=== PATIENT | female | born 1930 | race Caucasian/White ===

== ENCOUNTER 2016-04-28 16:42 | Inpatient (IN) | payer MEDICARE, BC ==
[~2016-04-28] VITALS: Ht 152.4 cm; Wt 43.7 kg
[~2016-04-28 16:42] MED LIST: ACET325T40 PO; APIX5TAB PO; ATOR20TA38 PO; B CO1CAP PO; CALC1TAB92 PO; FAMO-95 PO; HYDR-3498 PO; LEVO75TA59 PO; MAGN400T27 PO; METO50TA16 PO; MULT1TAB59 PO; MURO1282 BOTH EYES; OMEG-135 PO
[2016-04-28] MEDS ORDERED: ASPIRIN 81 MG TAB PO STA (18:26)
[2016-04-28] MEDS ORDERED: ACETAMINOPHEN 325 MG TAB PO PRN (18:30)
[2016-04-28] MEDS ORDERED: ONDANSETRON 4 MG INJ IV PRN (18:30)
[2016-04-28 18:58] LABS: CHLORIDE 100 mmol/L (97-110); INR 1.13; PROTIME 14.5 Sec (12.2-14.2); PT RATIO 1.1
[2016-04-28 18:59] LABS: BASOPHILS % 0.5 % (0.0-2.0); EOSINOPHILS # 0.1 10^3/ul (0.0-0.5); EOSINOPHILS % 1.9 % (0.0-7.0); HEMATOCRIT 38.5 % (37.0-47.0); HEMOGLOBIN 12.9 g/dl (12.0-16.0); LYMPHOCYTES # 1.6 10^3/ul (0.8-2.9); LYMPHOCYTES % 28.6 % (15.0-51.0); MEAN CORPUSCULAR HEMOGLOBIN 33.5 pg (29.0-33.0); MEAN CORPUSCULAR HGB CONC 33.5 g/dl (32.0-37.0); MONOCYTE # 0.8 10^3/ul (0.3-0.9); MONOCYTES % 13.9 % (0.0-11.0); NEUTROPHIL # 3.1 10^3/ul (1.6-7.5); NEUTROPHILS % 55.1 % (39.0-77.0); PARTIAL THROMBOPLASTIN TIME 32.1 Sec (25.0-35.0); PLATELET COUNT 210 10^3/UL (140-440); POTASSIUM 4.3 mmol/L (3.5-5.1); RED BLOOD COUNT 3.85 10^6/ul (4.20-5.40); RED CELL DISTRIBUTION WIDTH 13.9 % (11.5-14.5); SODIUM 137 mmol/L (135-144); UNCORRECTED WBC 5.6 10^3/ul (4.8-10.8); WHITE BLOOD COUNT 5.6 10^3/ul (4.8-10.8)
[2016-04-28 19:00] LABS: CONDITION 1
[2016-04-28 19:01] LABS: CREATININE 0.58 mg/dl (0.44-1.00)
[2016-04-28 19:02] LABS: ANION GAP 12 (8-16); BLOOD UREA NITROGEN 21 mg/dl (7-20); CALCIUM 9.3 mg/dl (8.4-10.2); CARBON DIOXIDE 29 mmol/L (21-31); GLUCOSE 89 mg/dl (70-220)
--- NOTE | 2016-04-28 19:08 | RADRPT ---
PROCEDURE: CT brain without contrast CLINICAL INDICATION: Possible stroke TECHNIQUE: A CT of the brain was performed utilizing axial sections from the skull base through th e vertex without contrast. Sagittal and coronal images were also reformatted. The exam CTDIvol = 44. 73 mGy and DLP = 630.20 mGy-cm. COMPARISON: Most recent relevant examination is an MRI brain 11/14/2014 FINDINGS: Areas of low attenuation consistent with encephalomalacia involve the left middle and superior front al lobe gyri, sequela of infarcts seen on the previous MRI of the brain. There is no evidence of he morrhage, acute infarct, mass effect, mass lesion or extra-axial collection. The ventricular system and sulci are slightly prominent compatible the patient's provided age of 86 years and associated r elated atrophy. The fourth ventricle is midline and there is no density alteration within the brian or cerebellum. The osseous structures are unremarkable. Chronic appearing opacification of the right ethmoid air c ells is present. The remaining paranasal sinuses and mastoid air cells are clear RPTAT:HJJR IMPRESSION: 1. 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 2. No evidence of acute infarct, hemorrhage or mass effect. 3. Chronic-appearing right ethmoid sinusitis. Physician Nadege Date Time Electronically viewed and signed by Physician Nadege on 04/28/2016 19:08 /
--- NOTE | 2016-04-28 19:16 | RADRPT ---
PROCEDURE: XR Chest. CLINICAL INDICATION: Stroke TECHNIQUE: Single AP portable chest COMPARISON: 11/13/2014 FINDINGS: The cardiomediastinal silhouette is within normal limits of size . Hyperexpansion compatible COPD ri ght posterior healed rib fracture deformities. Marked levoscoliosis of the thoracic spine . Athero sclerotic calcification of the aortic arch. Bilateral pleural calcifications. <The lungs are clear without pleural effusion or focal consolidation. No pneumothorax. The osseous structures and soft t issues are unremarkable. IMPRESSION: 1. No evidence for active cardiopulmonary disease. COPD. RPTAT:AAJJ Physician Mary Date Time Electronically viewed and signed by Physician Mary on 04/28/2016 19:15 YARED/
[2016-04-28 19:25] LABS: TROPONIN-I < 0.012 ng/ml (0.00-0.12)
--- NOTE | 2016-04-28 19:47 | ERA ---
ER Documentation Chief Complaint Date/Time DATE: 04/28/16 TIME: 19:47 Chief Complaint slurred speech, unsteady gait, onset at 1600. r eye blurry vision. HPI Patient is a 86-year-old female with previous stroke who presents with stroke symptoms. She said that she started with this at 4 PM. She started with "expressive aphasia" and inability to walk. The symptoms lasted 30 minutes and have resolved now. The family was concerned for possible stroke as she has had stroke in the past. The patient's primary doctor is Dr. Zelaya. He did call me to tell me the patient was in the emergency department waiting room with a potential stroke. ROS All systems reviewed and are negative except as per history of present illness. Medications Home Meds Active Scripts Metoprolol Succinate* (Toprol XL*) 50 Mg Tabsr, 50 MG PO DAILY, #30 Prov:FREDY GO NP 11/16/14 Magnesium Oxide* (Mag-Oxide*) 400 Mg Tab, 400 MG PO DAILY for 30 Days Prov:FREDY GO NP 11/16/14 Hydrocodone Bit/Acetaminophen (Anexsia 5-325 Mg Tablet) 1 Tab Tab, 1 TAB PO Q6H Y for MODERATE PAIN LEVEL 4-6 for 10 Days Prov:FREDY GO NP 11/16/14 Fish Oil* (Fish Oil*) 1,000 Mg Cap, 1000 MG PO BID for 30 Days, CAP Prov:FREDY GO NP 11/16/14 Famotidine* (Pepcid* AC) 20 Mg Tab, 20 MG PO BID for 30 Days Prov:FREDY GO NP 11/16/14 Calcium Carbonate/Vitamin D3 (Oyster Shell 500 Mg + Vit D Tb) 1 Tab Tab, 1 TAB PO BID for 30 Days Prov:FREDY GO NP 11/16/14 Atorvastatin Calcium* (Atorvastatin Calcium*) 20 Mg Tab, 80 MG PO HS for 30 Days Prov:FREDY GO NP 11/16/14 Apixaban* (Eliquis*) 5 Mg Tablet, 2.5 MG PO BID for 30 Days Prov:FREDY GO NP 11/16/14 Acetaminophen (MAPAP) 325 Mg Tab, 650 MG PO Q6H Y for PAIN LEVEL 1-3 OR FEVER for 30 Days Prov:FREDY GO NP 8/24/15 Reported Medications Sodium Chloride* (Nikita-128*) 2%-15ml Dropper Opht, 1 DROP BOTH EYES, EA 02/27/14 Vitamin B Comp W-C (Vitamin B-Complex W/Vit C & E) 1 Cap Capsule, 1 CAP PO DAILY 12/29/10 Multivitamins* (Multivitamins*) 1 Tab Tablet, 1 TAB PO DAILY 12/29/10 Levothyroxine Sodium (Levothroid) 75 Mcg Tablet, 75 MCG PO DAILY 12/29/10 Allergies Allergies: Coded Allergies: ceftriaxone (Verified Allergy, Mild, BURNING SENSATION OF ENTIRE BODY, ) cephalexin (Verified Allergy, Mild, GI UPSET, 11/16/14) ciprofloxacin (Verified Allergy, Mild, REDNESS AND ITCHING OF SKIN, ) nitroglycerin (Verified Allergy, Mild, HIVES, 11/16/14) PMhx/Soc History of Surgery: No Anesthesia Reaction: No Hx Neurological Disorder: Yes (S/P STROKE,TIA w/ rt side residual) Hx Respiratory Disorders: No Hx Cardiac Disorders: Yes (HTN, A-FIB) Hx Psychiatric Problems: No Hx Miscellaneous Medical Probl: Yes (hypothyroidism, reports having cataracts, macular degeneration) Hx Alcohol Use: No Hx Substance Use: No Hx Tobacco Use: Yes Smoking Status: Former smoker FmHx Family History: No diabetes Physical Exam Vitals Vital Signs Date Time Temp Pulse Resp B/P Pulse Ox O2 Delivery O2 Flow Rate FiO2 04/28/16 19:51 67 16 144/109 99 Room Air 04/28/16 16:57 98.8 64 20 147/65 98 Physical Exam Const: No acute distress Head: Atraumatic Eyes: Normal Conjunctiva ENT: Normal External Ears, Nose and Mouth. Neck: Full range of motion..~ No meningismus. Resp: Clear to auscultation bilaterally Cardio: Regular rate and rhythm, no murmurs Abd: Soft, non tender, non distended. Normal bowel sounds Skin: No petechiae or rashes Back: No midline or flank tenderness Ext: No cyanosis, or edema Neur: Awake and alert, right-sided upper extremity weakness from previous stroke but no obvious new deficit, speech is normal Psych: Normal Mood and Affect Result Diagram: 04/28/16183904/28/161839 Results 24 hrs Laboratory Tests Test 04/28/16 18:40 Activated Partial Thromboplast Time 32.1Sec Anion Gap 12 Basophils # 0.010^3/ul Basophils % 0.5% Blood Urea Nitrogen 21mg/dl Calcium Level 9.3mg/dl Carbon Dioxide Level 29mmol/L Chloride Level 100mmol/L Creatinine 0.58mg/dl Eosinophils # 0.110^3/ul Eosinophils % 1.9% Glucose Level 89mg/dl Hematocrit 38.5% Hemoglobin 12.9g/dl Hemoglobin A1c 5.5% INR International Normalized Ratio 1.13 Lymphocytes # 1.610^3/ul Lymphocytes % 28.6% Mean Corpuscular Hemoglobin 33.5pg Mean Corpuscular Hemoglobin Concent 33.5g/dl Mean Corpuscular Volume 100.0fl Mean Platelet Volume 8.0fl Monocytes # 0.810^3/ul Monocytes % 13.9% Neutrophils # 3.110^3/ul Neutrophils % 55.1% Nucleated Red Blood Cells # 0.010^3/ul Nucleated Red Blood Cells % 0.0/100WBC Platelet Count 74568^3/UL Potassium Level 4.3mmol/L Prothrombin Time 14.5Sec Prothrombin Time Ratio 1.1 Red Blood Count 3.8510^6/ul Red Cell Distribution Width 13.9% Sodium Level 137mmol/L Troponin I < 0.012ng/ml White Blood Count 5.610^3/ul Current Medications Medications (Trade) Dose Ordered Sig/Luli Route PRN Reason Start Time Stop Time Status Last Admin Dose Admin Aspirin (Aspirin) 162 mg ONCE STAT PO 04/28/16 18:26 04/28/16 18:27 DC 04/28/16 19:49 Ondansetron HCl (Zofran Inj) 4 mg ER BRIDGE PRN IV NAUSEA AND/OR VOMITING 04/28/16 18:30 04/29/16 18:29 Acetaminophen (Tylenol Tab) 650 mg ER BRIDGE PRN PO MILD PAIN/FEVER 04/28/16 18:30 04/29/16 18:29 Procedures/MDM EKG read by me: Rate/Rhythm: Left bundle branch block a rate of 51 Intervals: Normal Impression: Left bundle branch block with negative Sgarbossa criteria Chest x-ray shows COPD per radiology. PROCEDURE: CT brain without contrast CLINICAL INDICATION: Possible stroke TECHNIQUE: A CT of the brain was performed utilizing axial sections from the skull base through the vertex without contrast. Sagittal and coronal images were also reformatted. The exam CTDIvol = 44.73 mGy and DLP = 630.20 mGy-cm. COMPARISON: Most recent relevant examination is an MRI brain 11/14/2014 FINDINGS: Areas of low attenuation consistent with encephalomalacia involve the left middle and superior frontal lobe gyri, sequela of infarcts seen on the previous MRI of the brain. There is no evidence of hemorrhage, acute infarct, mass effect, mass lesion or extra-axial collection. The ventricular system and sulci are slightly prominent compatible the patient's provided age of 86 years and associated related atrophy. The fourth ventricle is midline and there is no density alteration within the brian or cerebellum. The osseous structures are unremarkable. Chronic appearing opacification of the right ethmoid air cells is present. The remaining paranasal sinuses and mastoid air cells are clear RPTAT:HJJR IMPRESSION: 1. 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 2. No evidence of acute infarct, hemorrhage or mass effect. 3. Chronic-appearing right ethmoid sinusitis. Physician Nadege Date Time Electronically viewed and signed by Fausto Rodriguez Physician on 04/28/2016 19:08 Patient is an 86-year-old female who presents with what sounds like a TIA. She also has a history of migraine headaches and this could be complex migraine. Her symptoms have resolved at this point I doubt acute stroke however she is at high risk for having a stroke within the next 48 hours. The patient had a bedside swallow evaluation and NIH stroke scale done. She is not a candidate for TPA as her symptoms have completely resolved. The patient will be given aspirin. The patient will be admitted to a telemetry bed to the care of Dr. Zelaya who is her primary doctor. Departure Diagnosis: Primary Impression: TIA (transient ischemic attack) Qualified Code: G45.9 - Transient cerebral ischemia, unspecified type Additional Impression: Altered level of consciousness Condition: KARLOS Cobb MD Apr 28, 2016 19:47
[2016-04-28] MEDS ORDERED: ATOR20TA38 PO (20:26)
[2016-04-28] MEDS ORDERED: LEVO75TA5 PO (20:26)
[2016-04-28] MEDS ORDERED: METO25TA4 PO (20:26)
[2016-04-28] MEDS ORDERED: APIX2.5T PO (20:27)
[2016-04-28 22:55] LABS: ADD UMIC YES; URINE BILIRUBIN (Dip) NEGATIVE (NEGATIVE); URINE BLOOD (Dip) NEGATIVE (NEGATIVE); URINE COLOR LT. YELLOW (YELLOW); URINE GLUCOSE (Dip) NEGATIVE (NEGATIVE); URINE KETONES (Dip) NEGATIVE (NEGATIVE); URINE LEUKOCYTE ESTERASE (Dip) TRACE (NEGATIVE); URINE NITRITE (Dip) NEGATIVE (NEGATIVE); URINE TOTAL PROTEIN (Dip) NEGATIVE (NEGATIVE); URINE UROBILINOGEN (Dip) 0.2 E.U./dL (0.1-1.0)
[2016-04-28 23:17] LABS: SQUAMOUS EPITHELIAL CELL,UR RARE; URINE RBCS 0-2 /HPF (0)
[2016-04-28 23:22] LABS: BARBITURATES Negative (NEGATIVE); BENZODIAZEPINES Negative (NEGATIVE); CANNABINOIDS Negative (NEGATIVE); COCAINE Negative (NEGATIVE); OPIATES Negative (NEGATIVE)
[2016-04-29] VITALS (15 sets, daily range): BP systolic 103–134; BP diastolic 45–69; PULSE 55–173; RESP 16–18; TEMP 98; Ht 152.4 cm; Wt 43.7 kg
[2016-04-29] MEDS ORDERED: ACETAMINOPHEN 500 MG TAB PO PRN (03:00)
[2016-04-29] MEDS ORDERED: ZOLPIDEM 5 MG TAB PO PRN (03:00)
[2016-04-29] MEDS: LEVOTHYROXINE 75 MCG TAB PO SCH (06:14)
[2016-04-29 07:42] LABS: ALBUMIN 3.2 g/dl (3.3-4.9); POTASSIUM 4.3 mmol/L (3.5-5.1)
[2016-04-29 07:45] LABS: ALBUMIN/GLOBULIN RATIO 1.14; BILIRUBIN,INDIRECT 0.4 mg/dl (0-1.1); BILIRUBIN,TOTAL 0.4 mg/dl (0.2-1.3); CREATININE 0.58 mg/dl (0.44-1.00)
[2016-04-29 07:46] LABS: CALCIUM 8.8 mg/dl (8.4-10.2)
[2016-04-29] MEDS ORDERED: DILTIAZEM 25 MG INJ IV ONE (08:30)
[2016-04-29 08:56] LABS: RED BLOOD COUNT 3.37 10^6/ul (4.20-5.40); WHITE BLOOD COUNT 3.8 10^3/ul (4.8-10.8)
[2016-04-29 08:57] LABS: HEMATOCRIT 33.7 % (37.0-47.0); HEMOGLOBIN 11.6 g/dl (12.0-16.0); MEAN CORPUSCULAR HEMOGLOBIN 34.4 pg (29.0-33.0); MEAN CORPUSCULAR HGB CONC 34.4 g/dl (32.0-37.0); MEAN PLATELET VOLUME 10.6 fl (7.4-10.4); PLATELET COUNT 187 10^3/UL (140-440); RED CELL DISTRIBUTION WIDTH 13.3 % (11.5-14.5)
[2016-04-29] MEDS: METOPROLOL 25 MG TAB PO SCH ×2 (09:01→20:18)
[2016-04-29] MEDS: APIXABAN 5 MG TABLET PO SCH ×2 (09:02→20:18)
[2016-04-29 09:04] LABS: BASOPHILS % 0.3 % (0.0-2.0); EOSINOPHILS # 0.1 10^3/ul (0.0-0.5); EOSINOPHILS % 3.4 % (0.0-7.0); LYMPHOCYTES # 1.5 10^3/ul (0.8-2.9); LYMPHOCYTES % 40.1 % (15.0-51.0); MONOCYTE # 0.6 10^3/ul (0.3-0.9); MONOCYTES % 15.7 % (0.0-11.0); NEUTROPHIL # 1.5 10^3/ul (1.6-7.5); NEUTROPHILS % 40.2 % (39.0-77.0)
[2016-04-29 09:15] LABS: MAGNESIUM 2.2 mg/dl (1.7-2.5)
[2016-04-29 09:41] LABS: TROPONIN-I < 0.012 ng/ml (0.00-0.12)
--- NOTE | 2016-04-29 13:07 | RADRPT ---
PROCEDURE: Carotid ultrasound CLINICAL INDICATION: Transient ischemic attack, carotid bruits TECHNIQUE: Bhakta scale, color doppler, spectral doppler ultrasound of the bilateral carotid and liban tebral arteries. This study indirectly references the measurement of the distal ICA diameter as the denominator for s tenosis measurement. Validated velocity measurements with angiographic measurements, velocity criter ia are extrapolated from diameter data as defined by: *Cartoid artery stenosis: bhakta-scale and Doppl er US diagnosis. Society of Radiologists in Ultrasound Consensus Conference. Radiology 2003; 229: 34 0-346. SRU Consensus Conference Criteria for the Diagnosis of Carotid Artery Stenosis* Degree of Stenosis, % ICA PSV, cm/sec Plaque Estimate, % ICA/CCA PSV Ratio Normal <125 None <2.0 <50 <125 <50 <2.0 50 69 125-230 >50 2.0-4.0 >70 but less than near occlusion >230 >50 <4.0 Near occlusion High, low, or undetectable Visible Variable Total occlusion Undetectable Visible, no detectable lumen Not applicable COMPARISON: 11/14/2014 FINDINGS: Location Right CCA69 cm/sec Prox ICA 106 cm/sec Mid ICA69 cm/sec Dist ICA63 cm/sec ECA76 cm/sec ICA/CCA1.5 Left CCA91 cm/sec Prox ICA 73 cm/sec Mid ICA63 cm/sec Dist ICA22 cm/sec ECA5.0 cm/sec ICA/CCA0.8 Plaque burden: Prominent calcified plaques are present at the origin of both internal carotid arteri es however there is no evidence of flow acceleration to suggest a hemodynamically significant stenos is. Antegrade flow is seen within the vertebral arteries bilaterally. IMPRESSION: Prominent calcified plaques are present at the origin of both internal carotid arteries however ther e is no evidence of flow acceleration to suggest a hemodynamically significant stenosis. Findings ar e similar to the previous examination. RPTAT: AADD .Anirudh Hanks MD, Date Time Electronically viewed and signed by .Anirudh Hanks MD, on 04/29/2016 13:07 .B/
--- NOTE | 2016-04-29 16:40 | CONS ---
Date/Time of Note Date/Time of Note DATE: 04/29/16 TIME: 16:34 Assessment/Plan Assessment/Plan Additional Assessment/Plan # Aphasia: ? TIA # PAFib- on AC # LBBB # HL >> Continue on Eliquis >> check carotid US and echo >> continue on Metoprolol >> consider amiodarone if recurrent episodes >> question addition of ASA if truly TIA Consultation Date/Type/Reason Admit Date/Time Apr 28, 2016 at 18:27 Type of Consultation: Cardiology Reason for Consultation Afib Hx of Present Illness This is a pleasant 86 yo woman with PAF who presented with aphasia and found to be rapid Afib . She has been on Eliquis and states has been taking it regularly. She has not had any recent episodes of Afib. She is not reporting any CHF syx prior or today. She has no CP or SOB. She had a CT yday without acute ischemia. Constitutional: improved, no complaints Eyes: no complaints ENT: no complaints Respiratory: no complaints Cardiovascular: palpitations Gastrointestinal: diarrhea, no complaints Genitourinary: no complaints Musculoskeletal: no complaints Skin: no complaints Neurologic: confusion, focal-weakness Endocrine: no complaints Lymphatic: no complaints Psychological: no complaints Past Medical History Medical History: other (Atrial Fib) Past Surgical History Past Surgical Hx: no surgical history Family History Significant Family History: no pertinent family hx Social History Alcohol Use: none Smoking Status: Never smoker Exam/Review of Systems Vital Signs Vitals Vital Signs Date Time Temp Pulse Resp B/P Pulse Ox O2 Delivery O2 Flow Rate FiO2 04/29/16 16:06 90 04/29/16 16:03 98.1 17 112/47 99 04/29/16 02:15 Room Air Intake and Output 04/28/16 04/28/16 04/29/16 15:00 23:00 07:00 Intake Total 300 ml Balance 300 ml Exam Constitutional: alert, oriented Psych: nl mood/affect, no complaints Head: atraumatic, normocephalic Eyes: nl conjunctiva ENMT: nl external ears & nose Neck: non-tender, supple Respiratory: clear to auscultation Cardiovascular: regular rate and rhythm, No edema Gastrointestinal: soft Musculoskeletal: nl extremities to inspection Extremities: normal pulses Neurological: 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 intact Skin: nl turgor Results Result Diagram: 04/29/16 0600 04/29/16 0600 Results 24 hrs Laboratory Tests Test 04/28/16 18:40 04/28/16 22:17 04/29/16 06:00 04/29/16 08:15 Activated Partial Thromboplast Time 32.1 Anion Gap 12 10 Basophils # 0.0 0.0 Basophils % 0.5 0.3 Blood Urea Nitrogen 21 H 18 Calcium Level 9.3 8.8 Carbon Dioxide Level 29 29 Chloride Level 100 104 Creatinine 0.58 0.58 Eosinophils # 0.1 0.1 Eosinophils % 1.9 3.4 Glucose Level 89 84 Hematocrit 38.5 33.7 L Hemoglobin 12.9 11.6 L Hemoglobin A1c 5.5 INR International Normalized Ratio 1.13 Lymphocytes # 1.6 1.5 Lymphocytes % 28.6 40.1 Mean Corpuscular Hemoglobin 33.5 H 34.4 H Mean Corpuscular Hemoglobin Concent 33.5 34.4 Mean Corpuscular Volume 100.0 100.0 Mean Platelet Volume 8.0 10.6 #H Monocytes # 0.8 0.6 Monocytes % 13.9 H 15.7 H Neutrophils # 3.1 1.5 L Neutrophils % 55.1 40.2 Nucleated Red Blood Cells # 0.0 0.0 Nucleated Red Blood Cells % 0.0 0.0 Platelet Count 210 187 Potassium Level 4.3 4.3 Prothrombin Time 14.5 H Prothrombin Time Ratio 1.1 Red Blood Count 3.85 L 3.37 L Red Cell Distribution Width 13.9 13.3 Sodium Level 137 139 Troponin I < 0.012 < 0.012 White Blood Count 5.6 3.8 #L Urine Amphetamines Screen Negative Urine Barbiturates Negative Urine Benzodiazepines Screen Negative Urine Bilirubin NEGATIVE Urine Cannabinoids Negative Urine Clarity CLEAR Urine Cocaine Screen Negative Urine Color LT. YELLOW Urine Glucose NEGATIVE Urine Hemoglobin NEGATIVE Urine Ketones NEGATIVE Urine Leukocyte Esterase TRACE H Urine Microscopic RBC 0-2 Urine Microscopic WBC 0-2 Urine Nitrite NEGATIVE Urine Opiates Screen Negative Urine Specific Plain <=1.005 L Urine Squamous Epithelial Cells RARE Urine Total Protein NEGATIVE Urine Urobilinogen 0.2 E.U./dL Urine pH 5.5 Alanine Aminotransferase (ALT/SGPT) 40 Albumin 3.2 L Albumin/Globulin Ratio 1.14 Alkaline Phosphatase 89 Aspartate Amino Transf (AST/SGOT) 29 Cholesterol Level 112 Cholesterol/HDL Ratio 2.0 Direct Bilirubin 0.00 Globulin 2.80 HDL Cholesterol 54 Indirect Bilirubin 0.4 LDL Cholesterol, Calculated 51 Total Bilirubin 0.4 Total Protein 6.0 L Triglycerides Level 37 Magnesium Level 2.2 Medications Medications Current Medications Apixaban (Eliquis) 2.5 mg BID PO Last administered on 04/29/16 09:02; Admin Dose 2.5 MG; Start 04/29/16 at 09:00 Atorvastatin Calcium (Lipitor) 20 mg QHS PO ; Start 04/29/16 at 21:00 Metoprolol Tartrate (Lopressor) 25 mg BID PO Last administered on 04/29/16 09: 01; Admin Dose 25 MG; Start 04/29/16 at 09:00 Zolpidem Tartrate (Ambien) 5 mg HS PRN PO INSOMNIA; Start 04/29/16 at 03:00 Acetaminophen (Tylenol Tab) 500 mg Q4H PRN PO PAIN AND OR ELEVATED TEMP; Start 04/29/16 at 03:00 FELIBERTO REDD MD Apr 29, 2016 16:40
--- NOTE | 2016-04-29 18:19 | HP ---
DATE OF ADMISSION: 04/28/2016 CHIEF COMPLAINT AND HISTORY OF PRESENT ILLNESS: The patient is an 86-year-old lady who has recently been followed by me in the office with a history of atrial fibrillation who had started with mild r ight-sided frontal headache with difficulty with her vision on the right eye, with no significant we akness on the right upper and lower extremities, and she was concerned and she walked to her son's h ouse and had difficulty with expressing herself to her [id number] and the patient's daughter-in -law brought her over to the emergency room and the patient was admitted. The patient denied any se srini headaches or any significant focal weakness or numbness. MEDICATIONS INCLUDE: 1. Metoprolol 25 mg p.o. b.i.d. 2. Eliquis 2.5 mg b.i.d. 3. Levothyroxine 75 mcg p.o. every day. 4. Atorvastatin 20 mg daily. 5. Fish oil capsules. ALLERGIES: 1. CEFTRIAXONE. 2. CEPHALEXIN. 3. CIPROFLOXACIN 4. NITROGLYCERIN. REVIEW OF SYSTEMS: HEAD: History of migraines, with initial aura. EYES: History of macular degeneration and poor vision. ENT: Recurrent sinus infections, history of a deviated nasal septum, has had a CT scan of the sinus es. NECK: History of hypothyroidism. CHEST: No bronchitis, hay fever, or asthma. HABITS: The patient does not smoke. PAST MEDICAL HISTORY: The patient has had a history of A-fib since 2010, history of stroke in 2014, with right upper and lower extremity paresis, with significant improvement, still has min imal weakness in the right upper extremity, with some spasticity. GASTROINTESTINAL: No constipation, diarrhea, change of bowel habits. Has had a colonoscopy. Histo ry of hemorrhoids, with bright red bleeding per rectum. History of diverticulosis. GENITOURINARY: History of kidney stones in the past. No history of nocturia. CUSTOM DESIGNER: Exam 3 years ago. SLEEP: Tends to snore, does have occasional daytime sleepiness. MUSCULOSKELETAL: History of pain in the lumbar spine with radiculopathy. The patient is being foll owed by Dr. Morgan. Advised low back lumbar brace. FAMILY HISTORY: Father had diabetes mellitus type 2 with Parkinson's disease. Mother had glaucoma, coronary artery disease. PHYSICAL EXAMINATION: GENERAL: Patient is an averagely-built female, very pleasant, who is quite awake and alert, a good sense of humor. VITAL SIGNS: Heart rate presently is 90 per minute, irregularly irregular, temperature 98.1, O2 sat uration 99% on room air. HEENT: Head normocephalic. No pallor, cyanosis, or icterus. Tongue is moist. NECK: Supple. No thyromegaly, bruits, or lymphadenopathy. LUNGS: Clinically clear. HEART: S1, S2 heard with no definite gallops. Irregularly irregular rhythm. ABDOMEN: Soft, nontender, no hepatosplenomegaly. EXTREMITIES: No edema. Pedal pulsations 2+ bilaterally. Homans sign is negative. NEUROLOGIC: Strength 4/5 in both right upper and lower extremities with spasticity of right upper e xtremity with some contractures of the right hand. Tenderness on palpation of the lumbar spine. Sc oliosis. PELVIC/RECTAL: Exam deferred at patient's request. LABORATORY DATA: Initial WBC count is 5.6, hematocrit 38.5, MCV of 100, platelet count 210,000. So dium 137, potassium 4.3, BUN 21, creatinine 0.58, magnesium 2.2. Troponin 0.01. Cholesterol 112, L DL of 51, Carotid Doppler study shows no hemodynamically significant stenosis. CT of the brain shows encephalomalacia, related to chronic left frontal lobe infarcts. No evidence of acute infarct, hemorrhage, or mass effect. Chest x-ray shows normal-sized heart, marked levoscol iosis of the thoracic spine, bilateral pleural calcifications, hyperexpansion noted. IMPRESSION: 1. Brief episode of expressive aphasia with right eye visual difficulties; possible TIA, query trisha plegic migraine. 2. Recurrent atrial fibrillation. Had a rapid ventricular response this morning. When she was up and around, heart rate went up to 130s. 3. Status post prior CVA with right hemiparesis with good recovery. 4. Hypothyroidism. 5. Prior history of chronic migraine. PLAN: We will admit the patient to telemetry. Obtain cardiac consultation, Dr. Liz. Continu e anticoagulation, beta blockers, and Cardizem on a p.r.n. basis. Obtain Doppler arterial study of both carotids and an echocardiogram. Initiate physical therapy. Monitor for signs of failure. The patient does have macrocytic anemia as well; therefore, we will obtain a B12 and folate levels as w ell. Dictated By: MATILDE JOSUE MD, SR/DARREN Conf#: [id number] DID#: [id number]
[2016-04-29] MEDS ORDERED: ATORVASTATIN 20 MG TAB PO SCH (21:00)
--- NOTE | 2016-04-29 21:10 | RADRPT ---
Vent Rate: 109 bpm RR Interval: 0 msec NE Interval: 0 msec QRS Duration: 120 msec QT Interval: 378 msec QTC Interval: 509 msec P-R-T [place]: 0 - -58 - 99 degrees Atrial fibrillation Left axis deviation Inferior infarct , age undetermined Anterolateral infarct , age undetermined Abnormal ECG Electronically Signed By: Jac Varghese [id number]
[2016-04-30] VITALS (11 sets, daily range): BP systolic 108–148; BP diastolic 53–69; PULSE 53–71; RESP 16–20
[2016-04-30] MEDS: LEVOTHYROXINE 75 MCG TAB PO SCH (06:39)
[2016-04-30 07:02] LABS: BASOPHILS % 0.5 % (0.0-2.0); EOSINOPHILS # 0.1 10^3/ul (0.0-0.5); EOSINOPHILS % 3.2 % (0.0-7.0); HEMATOCRIT 35.4 % (37.0-47.0); HEMOGLOBIN 12.2 g/dl (12.0-16.0); LYMPHOCYTES # 1.9 10^3/ul (0.8-2.9); LYMPHOCYTES % 40.2 % (15.0-51.0); MEAN CORPUSCULAR HEMOGLOBIN 34.4 pg (29.0-33.0); MEAN CORPUSCULAR HGB CONC 34.5 g/dl (32.0-37.0); MEAN CORPUSCULAR VOLUME 99.7 fl (82.0-101.0); MEAN PLATELET VOLUME 8.3 fl (7.4-10.4); MONOCYTE # 0.7 10^3/ul (0.3-0.9); MONOCYTES % 14.9 % (0.0-11.0); NEUTROPHIL # 1.9 10^3/ul (1.6-7.5); NEUTROPHILS % 41.2 % (39.0-77.0); PLATELET COUNT 185 10^3/UL (140-440); RED BLOOD COUNT 3.55 10^6/ul (4.20-5.40); RED CELL DISTRIBUTION WIDTH 13.6 % (11.5-14.5); UNCORRECTED WBC 4.6 10^3/ul (4.8-10.8); WHITE BLOOD COUNT 4.6 10^3/ul (4.8-10.8)
[2016-04-30 07:07] LABS: CONDITION 1
[2016-04-30 07:23] LABS: POTASSIUM 4.3 mmol/L (3.5-5.1)
[2016-04-30 07:25] LABS: CREATININE 0.6 mg/dl (0.44-1.00)
[2016-04-30 07:42] LABS: THYROID STIMULATING HORMONE 0.713 MIU/L (0.465-4.680)
[2016-04-30 08:26] LABS: FOLATE 16.5 ng/ml (2.8-20.0)
[2016-04-30] MEDS: APIXABAN 5 MG TABLET PO SCH ×2 (09:30→20:42)
[2016-04-30] MEDS: METOPROLOL 25 MG TAB PO SCH ×2 (09:31→20:43)
--- NOTE | 2016-04-30 13:06 | CONS ---
Date/Time of Note Date/Time of Note DATE: 04/30/16 TIME: 13:05 Assessment/Plan Assessment/Plan Chief Complaint/Hosp Course This is a pleasant 86 yo woman with PAF who presented with aphasia and found to be rapid Afib . She has been on Eliquis and states has been taking it regularly. She has not had any recent episodes of Afib. She is not reporting any CHF syx prior or today. She has no CP or SOB. She had a CT yday without acute ischemia. Problems: Additional Assessment/Plan # Aphasia: ? TIA # PAFib- on AC # LBBB # HL >> Continue on Eliquis >> echo done today, will review >> continue on Metoprolol >> consider amiodarone if recurrent episodes >> question addition of ASA if truly TIA >> pending MRI Consultation Date/Type/Reason Admit Date/Time Apr 28, 2016 at 18:27 Initial Consult Date Type of Consultation: Cardiology 24 HR Interval Summary Free Text/Dictation No new issues. no palpitations Exam/Review of Systems Vital Signs Vitals Vital Signs Date Time Temp Pulse Resp B/P Pulse Ox O2 Delivery O2 Flow Rate FiO2 04/30/16 12:16 54 04/30/16 11:45 98.3 20 138/60 99 04/29/16 02:15 Room Air Intake and Output 04/29/16 04/29/16 04/30/16 15:00 23:00 07:00 Intake Total 900 ml 120 ml Output Total 1400 ml 2 ml Balance -500 ml 118 ml Exam Constitutional: alert, oriented Psych: no complaints Head: normocephalic Eyes: EOMI, nl conjunctiva ENMT: nl external ears & nose Neck: supple Respiratory: clear to auscultation Cardiovascular: regular rate and rhythm Gastrointestinal: nl liver, spleen, soft Extremities: normal pulses Neurological: CANARY RAISER II-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 intact Results Result Diagram: 04/30/16 0545 04/30/16 0545 Results 24 hrs Laboratory Tests Test 04/30/16 05:45 Anion Gap 13 Basophils # 0.0 Basophils % 0.5 Blood Urea Nitrogen 24 H Calcium Level 9.0 Carbon Dioxide Level 27 Chloride Level 103 Creatinine 0.60 Eosinophils # 0.1 Eosinophils % 3.2 Folate 16.5 Glucose Level 91 Hematocrit 35.4 L Hemoglobin 12.2 Lymphocytes # 1.9 Lymphocytes % 40.2 Magnesium Level 2.0 Mean Corpuscular Hemoglobin 34.4 H Mean Corpuscular Hemoglobin Concent 34.5 Mean Corpuscular Volume 99.7 Mean Platelet Volume 8.3 # Monocytes # 0.7 Monocytes % 14.9 H Neutrophils # 1.9 Neutrophils % 41.2 Nucleated Red Blood Cells # 0.0 Nucleated Red Blood Cells % 0.0 Platelet Count 185 Potassium Level 4.3 Red Blood Count 3.55 L Red Cell Distribution Width 13.6 Sodium Level 139 Thyroid Stimulating Hormone (TSH) 0.713 Thyroxine (T4) 7.4 Vitamin B12 Level 901 White Blood Count 4.6 #L Medications Medications Current Medications Apixaban (Eliquis) 2.5 mg BID PO Last administered on 04/30/16 09:30; Admin Dose 2.5 MG; Start 04/29/16 at 09:00 Metoprolol Tartrate (Lopressor) 25 mg BID PO Last administered on 04/30/16 09: 31; Admin Dose 25 MG; Start 04/29/16 at 09:00 Zolpidem Tartrate (Ambien) 5 mg HS PRN PO INSOMNIA; Start 04/29/16 at 03:00 Acetaminophen (Tylenol Tab) 500 mg Q4H PRN PO PAIN AND OR ELEVATED TEMP Last administered on 04/30/16 01:46; Admin Dose 500 MG; Start 04/29/16 at 03:00 Atorvastatin Calcium (Lipitor) 40 mg QHS PO ; Start 04/30/16 at 21:00 Aspirin (Halfprin) 81 mg DAILY PO ; Start 05/01/16 at 09:00 FELIBERTO REDD MD Apr 30, 2016 13:06
--- NOTE | 2016-04-30 14:32 | CONS ---
DATE OF ADMISSION: 04/28/2016 DATE OF CONSULTATION: 04/30/2016 TYPE OF CONSULTATION: Neurology Thank you, Dr. Zelaya, for kind referral for evaluation of possible stroke versus TIA. HISTORY OF PRESENT ILLNESS: The patient is an 86-year-old lady with past medical history of atrial fibrillation since 2010, history of stroke with residual right-sided weakness in 2014, as well as a history of migraine headache was worse or at times just auras without major headaches. She also has hypothyroidism. The patient stated that at times she gets auras or somewhat distorted or scotomatous vision in the l eft visual field, which is usually followed by a mild dull right-sided headache. She usually takes Tylenol and it helps the problem. She could not say how frequently those episodes happen. She stat es it may come in clusters. She was evaluated by a neurologist many years ago. Her symptoms go back at least 25 years ago. She was told that they are migrainous auras and at one point probably at th e time when she saw the neurologist, she had episode of expressive aphasia, unable to express hersel f. At this time, the day before yesterday, the patient developed her usual mild right frontal heada tristen but at that time with visual changes in the right eye. She went next door to her [id number] w and son's house and she could not express herself. She had speech difficulties, so she came to em ergency room, almost right away. By the time she was in the emergency room, less than an hour at [facility], her symptoms had resolved. A CAT scan of the head shows left frontal encephalomalacia. Chest x-ray within normal limits. Vogt tid ultrasound showed absence of hemodynamically significant stenosis. Medications prior to admission included Eliquis. She was evaluated by a waste oil pumper here who sugge sted the addition of aspirin if her episode was TIA related. She also presented with atrial fibrill ation and rapid ventricular response. She has no complaints currently. CURRENT MEDICATIONS: 1. Metoprolol. 2. Eliquis. 3. Synthroid. 4. Ambien. 5. Lipitor 20 mg. The same medicines prior to admission. ALLERGIES: MULTIPLE MEDICATIONS: 1. NITROGLYCERIN. 2. CIPROFLOXACIN. 3. CEPHALEXIN. 4. CEFTRIAXONE. SOCIAL HISTORY: No alcohol, tobacco, drug use. FAMILY HISTORY: Noncontributory. REVIEW OF SYSTEMS: Also includes chronic low back pain. PHYSICAL EXAMINATION VITAL SIGNS: Temperature 98.1, 65 pulse, 20 respirations, 132/60 blood pressure. GENERAL: Not in acute distress, sitting in the chair. HEENT: Normocephalic, atraumatic. NECK: No carotid bruits. No thyromegaly. LUNGS: Clear to auscultation bilaterally. CARDIAC: Irregularly irregular cardiac rhythm. ABDOMEN: Soft. EXTREMITIES: No cyanosis, clubbing or edema. There is some contracture of the right hand. NEUROLOGIC: She is awake, alert, and oriented x3 with fluent speech, normal naming and repetition. She does follow complex commands. Cranial nerve examination shows intact visual beltran bilaterally . Pupils reactive from 2 to 1 mm bilaterally. Extraocular movements intact without nystagmus. Sym metrical face. Preserved facial strength and sensation. Tongue is in midline. Palate elevates sym metrically. Motor strength examination shows mild weakness on manual strength testing in the right upper and lower extremities, 4+/5. No pronator drift. She is unable to extend her fingers on the r ight hand. Sensory examination grossly intact to light touch and pain. Deep tendon reflexes 2+ thr oughout. Equivocal response to plantar stimulation. Coordination preserved on [id number]-[id number] rhett ting. No dysmetria or tremor. Gait: Small steps, cautious, somewhat antalgic. IMPRESSION: Transient right visual changes along with aphasia in patient with atrial fibrillation a nd history of stroke could reflect transient ischemic attack. She does have history of migraine hea dache with aura or at times aura without major headaches, usually aura without major headache, but u sually the aura does not involve speech difficulties and usually changes are on the left visual fiel d. PLAN: 1. Add baby aspirin to her Eliquis. 2. Will obtain MRI of the brain. 3. I will increase Lipitor to 40 mg instead of 20 Thank you very much for this interesting consultation. Dictated By: VINCENT GARCIA/DARREN Conf#: [id number] DID#: [id number]
--- NOTE | 2016-04-30 17:35 | PN ---
DATE: 04/30/2016 SUBJECTIVE: Patient has no chest pain or shortness of breath. Mild weakness in the right upper ext remity. No cough, no slurred speech, no headaches. PHYSICAL EXAMINATION: GENERAL: The patient is in no acute distress. VITAL SIGNS: Heart rate 54 per minute, blood pressure 130/60 patient is in normal sinus rhythm. O2 saturation 98% on room air. HEENT: Head normocephalic. Mild pallor without cyanosis. Tongue is ____ dry. NECK: Supple. No thyromegaly, bruits or lymphadenopathy. CHEST: Clinically clear. HEART: S1, S2 heard with no gallops. ABDOMEN: Soft, nontender, no hepatosplenomegaly. EXTREMITIES: No edema. LABORATORY DATA: WBC count 4.6, hematocrit 35.4. Sodium 139, potassium 4.3, BUN 24, creatinine 0.6 , T4 is 7.4. TSH 0.713. Vitamin B12 is 901. Folate 16.5. Magnesium is 2. Dr. Liz's cardiology consultation is much appreciated. I have also requested Dr. Tolu knox for neurology consultation and will follow his recommendations. IMPRESSION: 1. Possible transient ischemic attack, ____ hemiplegic migraine. 2. Recurrent atrial fibrillation, presently in normal sinus rhythm, status post rapid ventricular r esponse yesterday. 3. Status post prior cerebrovascular accident with right hemiparesis. 4. Hypothyroidism. 5. Macrocytic anemia, B12 and folate levels were normal. PLAN: We will await echocardiogram report and a neurology consultation and recommendations per Dr. Yu. Dictated By: MATILDE JOSUE MD, SR/NTS Conf#: [id number] DID#: [id number]
--- NOTE | 2016-04-30 19:12 | RADRPT ---
Vent Rate: 80 bpm RR Interval: 0 msec IA Interval: 150 msec QRS Duration: 118 msec QT Interval: 386 msec QTC Interval: 445 msec P-R-T [place]: 86 - -58 - 84 degrees Sinus rhythm with marked sinus arrhythmia Possible Left atrial enlargement Left axis deviation LBBB Septal infarct , age undetermined Inferior infarct , age undetermined ST amp; T wave abnormality, consider lateral ischemia Abnormal ECG Electronically Signed By: Jac Varghese [id number]
[2016-04-30] MEDS: ATORVASTATIN 20 MG TAB PO SCH (20:42)
[2016-05-01] VITALS (12 sets, daily range): BP systolic 107–150; BP diastolic 54–64; PULSE 48–80; RESP 16–18
[2016-05-01] MEDS: LEVOTHYROXINE 75 MCG TAB PO SCH (06:19)
[2016-05-01 06:51] LABS: BASOPHILS % 0.5 % (0.0-2.0); EOSINOPHILS # 0.2 10^3/ul (0.0-0.5); EOSINOPHILS % 3.4 % (0.0-7.0); HEMOGLOBIN 12.8 g/dl (12.0-16.0); LYMPHOCYTES # 2.2 10^3/ul (0.8-2.9); LYMPHOCYTES % 47.3 % (15.0-51.0); MEAN CORPUSCULAR HEMOGLOBIN 34.4 pg (29.0-33.0); MEAN CORPUSCULAR HGB CONC 34.5 g/dl (32.0-37.0); MEAN CORPUSCULAR VOLUME 99.7 fl (82.0-101.0); MEAN PLATELET VOLUME 8.1 fl (7.4-10.4); MONOCYTE # 0.6 10^3/ul (0.3-0.9); MONOCYTES % 12.2 % (0.0-11.0); NEUTROPHIL # 1.7 10^3/ul (1.6-7.5); NEUTROPHILS % 36.6 % (39.0-77.0); PLATELET COUNT 198 10^3/UL (140-440); RED BLOOD COUNT 3.71 10^6/ul (4.20-5.40); RED CELL DISTRIBUTION WIDTH 13.8 % (11.5-14.5); UNCORRECTED WBC 4.7 10^3/ul (4.8-10.8); WHITE BLOOD COUNT 4.7 10^3/ul (4.8-10.8)
[2016-05-01 06:55] LABS: CONDITION 1
[2016-05-01 07:07] LABS: POTASSIUM 4.2 mmol/L (3.5-5.1)
[2016-05-01 07:10] LABS: CREATININE 0.61 mg/dl (0.44-1.00)
[2016-05-01 07:11] LABS: CALCIUM 8.7 mg/dl (8.4-10.2)
--- NOTE | 2016-05-01 08:40 | RADRPT ---
Echocardiogram Report Patient Name: ZAINA PIMENTEL Gender: Female Date: 1930 Study Date: 30-Apr-2016 Money Examiner: HUMA Location: I Height(Cm): 152 Weight(Kg): 44 BSA: 1.36 Ref. Physician: MATILDE JOSUE Quality: Adequate Procedures: Transthoracic echocardiogram with complete 2D, M-Mode, and doppler examination. Indications: Atrial Fibrillation. 2D/M Mode Doppler Measurement Value Normal Ranges Measurement Value Normal Ranges AoR Diam MM 2.9 cm MV E Peak George 1.1 m/sec LVIDd 2D 3.2 3.5 - 5.6 cm MV A Peak George 0.8 m/sec LVIDs 2D 1.8 2.1 - 4.1 cm MV E/A 1.4 LVPWd 2D 1.1 0.6 - 1.1 cm MV Decel Time 291 msec IVSd 2D 1.2 0.6 - 1.1 cm MV Decel Branch 4 EDV 2D 41.7 cm3 MV E/A 1.4 ESV 2D 6.2 cm3 TR Peak George 2.3 m/sec LA Dimen 2D 3.2 2.3 - 4.0 cm TR Peak PG 21.2 mmHg RVSP 24.2 mmHg Findings Left Ventricle: Normal left ventricular systolic function. Normal left ventricular cavity size. Normal left ventricular wall thickness. Mild hypertrophy of the basal septum. Ejection fraction is visually estimated at 65 %. Tissue Doppler/Mitral Doppler indices are consistent with pseudonormalization with mildly elevated left atrial pressure (Stage II diastolic dysfunction). E/E`=14. No left ventricular outflow tract gradient at rest. Right Ventricle: Normal right ventricular size. Normal right ventricular systolic function. Left Atrium: There is mild enlargement of left atrium. Right Atrium: There is mild enlargement of right atrium. Atrial Septum: Normal atrial septum. Mitral Valve: Mitral valve leaflets appear mildly thickened. Mild mitral annular calcification. Mild mitral valve regurgitation. Aortic Valve: Doppler study of aortic stenosis not provided. Aortic sclerosis without stenosis. Aortic cusps appear mildly calcified. Mild aortic valve regurgitation by color doppler. Tricuspid Valve: Normal appearance of the tricuspid valve. Normal right ventricular systolic pressure. Estimated peak PA systolic pressure 24 mmHg. There is trace tricuspid regurgitation. Pulmonic Valve: Normal pulmonic valve appearance. There is trace pulmonic regurgitation. Pericardium: Normal pericardium with no significant pericardial effusion. Aorta: Normal aortic root. IVC: Normal size and normal respiratory collapse consistent with normal right atrial pressure. Pulmonary Artery: Not well visualized. Conclusions Normal left ventricular systolic function. Normal left ventricular cavity size. Normal left ventricular wall thickness. Mild hypertrophy of the basal septum. Ejection fraction is visually estimated at 65 %. Tissue Doppler/Mitral Doppler indices are consistent with pseudonormalization with mildly elevated left atrial pressure (Stage II diastolic dysfunction). E/E`=14. No left ventricular outflow tract gradient at rest. Normal right ventricular size. Normal right ventricular systolic function. There is mild enlargement of left atrium. There is mild enlargement of right atrium. Doppler study of aortic stenosis not provided. Aortic sclerosis without stenosis. Aortic cusps appear mildly calcified. Mild aortic valve regurgitation by color doppler. Normal size and normal respiratory collapse consistent with normal right atrial pressure. Normal appearance of the tricuspid valve. Normal right ventricular systolic pressure. Estimated peak PA systolic pressure 24 mmHg. There is trace tricuspid regurgitation. No Vegetation, masses, or thrombi seen. Electronically Signed By: Marcin Franz 01-May-2016 08:39:50 -0800 Patient Name: ZAINA PIMENTEL Study Date: 30-Apr-2016 [id number]
[2016-05-01] MEDS: METOPROLOL 25 MG TAB PO SCH ×2 (09:00→20:33)
[2016-05-01] MEDS: APIXABAN 5 MG TABLET PO SCH ×2 (09:11→20:33)
[2016-05-01] MEDS: ASPIRIN (EC) 81 MG TAB PO SCH (09:12)
--- NOTE | 2016-05-01 10:45 | CONS ---
Date/Time of Note Date/Time of Note DATE: 05/01/16 TIME: 10:41 Assessment/Plan Assessment/Plan Chief Complaint/Hosp Course # Aphasia: ? TIA vs/migraine, neuro following. MRI pending # h/o of CVA # PAFib- on AC, non valvular rate. now in sr. # LBBB # HL >> Continue on [id number] po bid >> agree with adding asa 81mg daily given possible TIA >> continue on Metoprolol >> consider amiodarone if recurrent episodes of afib >> pending MRI Problems: Consultation Date/Type/Reason Admit Date/Time Apr 28, 2016 at 18:27 Initial Consult Date Type of Consultation: Cardiology Reason for Consultation afib Referring Provider: MATILDE JOSUE MD 24 HR Interval Summary Free Text/Dictation no acute events. pt reports no palpitations, dizziness, cp, sob. pt states memory/speech is improved. has notice chronic decline in memory. tele tracing reviewed: nsr, no afib Detailed Summary ENT: no complaints Respiratory: no complaints Cardiovascular: no complaints Gastrointestinal: no complaints Exam/Review of Systems Vital Signs Vitals Vital Signs Date Time Temp Pulse Resp B/P Pulse Ox O2 Delivery O2 Flow Rate FiO2 05/01/16 08:37 48 05/01/16 07:59 98.1 17 125/59 96 05/01/16 04:00 Room Air Intake and Output 04/30/16 04/30/16 05/01/16 15:00 23:00 07:00 Intake Total 1440 ml 120 ml Output Total 2 ml Balance 1440 ml 118 ml Exam Constitutional: alert, oriented Psych: no complaints Head: normocephalic Eyes: EOMI, nl conjunctiva ENMT: nl external ears & nose Neck: supple Respiratory: clear to auscultation Cardiovascular: regular rate and rhythm, ii/vi gonzalo rusb Gastrointestinal: nl liver, spleen, soft Extremities: normal pulses Neurological: [employer] PROFESSOR II-XII intact RUE weakness, chornic Results Result Diagram: 05/01/16 0555 05/01/16 0555 Results 24 hrs Laboratory Tests Test 05/01/16 05:55 Anion Gap 13 Basophils # 0.0 Basophils % 0.5 Blood Urea Nitrogen 20 Calcium Level 8.7 Carbon Dioxide Level 28 Chloride Level 103 Creatinine 0.61 Eosinophils # 0.2 Eosinophils % 3.4 Glucose Level 83 Hematocrit 37.0 Hemoglobin 12.8 Lymphocytes # 2.2 Lymphocytes % 47.3 Mean Corpuscular Hemoglobin 34.4 H Mean Corpuscular Hemoglobin Concent 34.5 Mean Corpuscular Volume 99.7 Mean Platelet Volume 8.1 Monocytes # 0.6 Monocytes % 12.2 H Neutrophils # 1.7 Neutrophils % 36.6 L Nucleated Red Blood Cells # 0.0 Nucleated Red Blood Cells % 0.0 Platelet Count 198 Potassium Level 4.2 Red Blood Count 3.71 L Red Cell Distribution Width 13.8 Sodium Level 140 White Blood Count 4.7 L Medications Medications Current Medications Apixaban (Eliquis) 2.5 mg BID PO Last administered on 05/01/16 09:11; Admin Dose 2.5 MG; Start 04/29/16 at 09:00 Metoprolol Tartrate (Lopressor) 25 mg BID PO Last administered on 04/30/16 20: 43; Admin Dose 25 MG; Start 04/29/16 at 09:00 Zolpidem Tartrate (Ambien) 5 mg HS PRN PO INSOMNIA; Start 04/29/16 at 03:00 Acetaminophen (Tylenol Tab) 500 mg Q4H PRN PO PAIN AND OR ELEVATED TEMP Last administered on 04/30/16 01:46; Admin Dose 500 MG; Start 04/29/16 at 03:00 Atorvastatin Calcium (Lipitor) 40 mg QHS PO Last administered on 04/30/16 20:42 ; Admin Dose 40 MG; Start 04/30/16 at 21:00 Aspirin (Halfprin) 81 mg DAILY PO Last administered on 05/01/16 09:12; Admin Dose 81 MG; Start 05/01/16 at 09:00 Procedures Procedures carotid duplex images reviewed: mild atherosclerosis, no hemodynamic sig lesion brain ct report reviewed BRITTNEY BEAN May 01, 2016 10:45
--- NOTE | 2016-05-01 14:44 | PN ---
DATE: 05/01/2016 SUBJECTIVE: The patient overall feels better. Denies any chest pain or shortness of breath. No he adaches. PHYSICAL EXAMINATION: GENERAL: The patient is in no acute distress. VITAL SIGNS: Temperature is 98.1, blood pressure 124/59, pulse ox 96, heart rate 80 per minute, in normal sinus rhythm. Speech is normal. NECK: No thyromegaly or bruits. LUNGS: Clinically clear. HEART: S1, S2 heard. No murmurs, rubs, or gallops. EXTREMITIES: No edema. LABORATORY STUDIES: Sodium 140, potassium 4.2, BUN 20, creatinine 0.61. WBC 4.7, hematocrit 37, pl atelet count is 198,000. MRI of the brain is pending. IMPRESSION: 1. Transient ischemic attack. 2. History of migraine. 3. Recurrent atrial fibrillation, presently in normal sinus rhythm. 4. Status post cerebrovascular accident with right hemiparesis. 5. Hypothyroidism. 6. Macrocytic anemia with normal B12 and folate levels. PLAN: We will await the MRI. Continue physical therapy, increase activity, and if neurologically s table, consider discharge in a.m. tomorrow after discussion with Dr. Reddy and Dr. Yuen. Dictated By: MATILDE JOSUE MD SR/DARREN Conf#: [id number] DID#: [id number]
--- NOTE | 2016-05-01 18:03 | RADRPT ---
PROCEDURE: MRI Brain without contrast. CLINICAL INDICATION: Transient ischemic attack TECHNIQUE: Multiplanar MRI of the brain without contrast was performed on a 3.0 T scanner with the following sequences obtained: T1-weighted, T2-weighted/FLAIR, diffusion weighted (with ADC map), GR E. COMPARISON: CT brain 04/28/2016, MRI brain 11/14/2014 FINDINGS: There are very small chronic infarcts in the left frontal and parietal lobes with adjacent gliosis, and a chronic lacunar infarct in the right basal ganglia. No acute/recent ischemic infarction or in tracranial hemorrhage / blood degradation products are identified. No extra-axial fluid collection is seen. There is no mass effect. No midline shift is identified. The ventricles and sulci are mildly enlarged, compatible with generalized volume loss. Mild areas of increased T2 / FLAIR signal intensity are present in the periventricular and deep whit e matter, nonspecific but likely related to chronic small vessel ischemic changes. Flow voids are identified in the proximal intracranial arteries and dural sinuses suggesting patency . There is right frontal, and anterior ethmoid, and maxillary sinus opacification. IMPRESSION: 1. No evidence of acute intracranial pathology. 2. Very small chronic left frontal and parietal infarcts, and chronic right basal ganglia lacunar i nfarct. 3. Mild generalized volume loss, with mild chronic small vessel ischemic changes. RPTAT: VV .Chester Aguilera MD, Date Time Electronically viewed and signed by .Chester Aguilera MD, on 05/01/2016 18:03 .O/
[2016-05-01] MEDS: ATORVASTATIN 20 MG TAB PO SCH (20:33)
--- NOTE | 2016-05-01 20:47 | CONS ---
Date/Time of Note Date/Time of Note DATE: 05/01/16 TIME: 20:43 Consult Date/Type/Reason Admit Date/Time Apr 28, 2016 at 18:27 Initial Consult Date Type of Consultation: neurology Ordering Provider: MATILDE JOSUE MD Subjective no new problems, no new events, no headache, no aphasia Objective Vital Signs Date Time Temp Pulse Resp B/P Pulse Ox O2 Delivery O2 Flow Rate FiO2 05/01/16 20:09 59 05/01/16 19:58 98.0 18 107/54 97 05/01/16 04:00 Room Air Intake and Output 04/30/16 04/30/16 05/01/16 15:00 23:00 07:00 Intake Total 1440 ml 120 ml Output Total 2 ml Balance 1440 ml 118 ml Results/Medications Result Diagram: 05/01/16 0555 05/01/16 0555 Results 24 hrs Laboratory Tests Test 05/01/16 05:55 Anion Gap 13 Basophils # 0.0 Basophils % 0.5 Blood Urea Nitrogen 20 Calcium Level 8.7 Carbon Dioxide Level 28 Chloride Level 103 Creatinine 0.61 Eosinophils # 0.2 Eosinophils % 3.4 Glucose Level 83 Hematocrit 37.0 Hemoglobin 12.8 Lymphocytes # 2.2 Lymphocytes % 47.3 Mean Corpuscular Hemoglobin 34.4 H Mean Corpuscular Hemoglobin Concent 34.5 Mean Corpuscular Volume 99.7 Mean Platelet Volume 8.1 Monocytes # 0.6 Monocytes % 12.2 H Neutrophils # 1.7 Neutrophils % 36.6 L Nucleated Red Blood Cells # 0.0 Nucleated Red Blood Cells % 0.0 Platelet Count 198 Potassium Level 4.2 Red Blood Count 3.71 L Red Cell Distribution Width 13.8 Sodium Level 140 White Blood Count 4.7 L Medications Current Medications Apixaban (Eliquis) 2.5 mg BID PO Last administered on 05/01/16 20:33; Admin Dose 2.5 MG; Start 04/29/16 at 09:00 Metoprolol Tartrate (Lopressor) 25 mg BID PO Last administered on 05/01/16 20: 33; Admin Dose 25 MG; Start 04/29/16 at 09:00 Zolpidem Tartrate (Ambien) 5 mg HS PRN PO INSOMNIA; Start 04/29/16 at 03:00 Acetaminophen (Tylenol Tab) 500 mg Q4H PRN PO PAIN AND OR ELEVATED TEMP Last administered on 04/30/16 01:46; Admin Dose 500 MG; Start 04/29/16 at 03:00 Atorvastatin Calcium (Lipitor) 40 mg QHS PO Last administered on 05/01/16 20:33 ; Admin Dose 40 MG; Start 04/30/16 at 21:00 Aspirin (Halfprin) 81 mg DAILY PO Last administered on 05/01/16 09:12; Admin Dose 81 MG; Start 05/01/16 at 09:00 Assessment/Plan Chief Complaint/Hosp Course PHYSICAL EXAMINATION GENERAL: Not in acute distress, in bed. HEENT: Normocephalic, atraumatic. NECK: No carotid bruits. No thyromegaly. LUNGS: Clear to auscultation bilaterally. CARDIAC: Irregularly irregular cardiac rhythm. ABDOMEN: Soft. EXTREMITIES: No cyanosis, clubbing or edema. There is some contracture of the right hand. NEUROLOGIC: She is awake, alert, and oriented x3 with fluent speech, normal naming and repetition. She does follow complex commands. Cranial nerve examination shows intact visual beltran bilaterally. Pupils reactive from 2 to 1 mm bilaterally. Extraocular movements intact without nystagmus. Symmetrical face. Preserved facial strength and sensation. Tongue is in midline. Palate elevates symmetrically. Motor strength examination shows mild weakness on manual strength testing in the right upper and lower extremities, 4+/5. No pronator drift. She is unable to extend her fingers on the right hand. Sensory examination grossly intact to light touch and pain. Deep tendon reflexes 2+ throughout. Equivocal response to plantar stimulation. Coordination preserved on [id number] testing. No dysmetria or tremor. Gait: not checked IMPRESSION: Transient right visual changes along with aphasia in patient with atrial fibrillation and history of stroke could reflect transient ischemic attack. She does have history of migraine headache with aura or at times aura without major headaches, usually aura without major headache, but usually the aura does not involve speech difficulties and usually changes are on the left visual field. PLAN: baby aspirin with Eliquis, Lipitor to 40 mg, keep euglycemic, normotensive. C/o weakness and numbness in the right hand (old) with unpleasant buzzing, tingling sensations - may try small neurontin 100 qhs x 1 week, bid x 1 week, then tid OK to d/c from neuro perspective Problems: VINCENT GONZALEZ MD May 01, 2016 20:47
[2016-05-01] MEDS: GABAPENTIN 100 MG CAP PO SCH (22:23)
[2016-05-02] VITALS (11 sets, daily range): BP systolic 97–118; BP diastolic 47–72; PULSE 56–76; RESP 17–18
[2016-05-02] MEDS: LEVOTHYROXINE 75 MCG TAB PO SCH (06:57)
--- NOTE | 2016-05-02 08:32 | CONS ---
Date/Time of Note Date/Time of Note DATE: 05/02/16 TIME: 08:28 Assessment/Plan Assessment/Plan Chief Complaint/Hosp Course # Aphasia: ? TIA vs/migraine, neuro following. MRI pending # h/o of CVA # PAFib- on AC, rate controlled # LBBB # HL >> Continue on Eliquis 2.5mg po bid given age, wt < 60kg >> agree with adding asa 81mg daily given possible TIA >> increase metoprolol to xl 50mg po bid >> add amiodarone 400mg daily x 2 weeks then 200mg daily, confirm tsh/lfts checked. needs outpt pft >> pt/ot eval Problems: Consultation Date/Type/Reason Admit Date/Time Apr 28, 2016 at 18:27 Type of Consultation: cardiology Referring Provider: MATILDE JOSUE MD 24 HR Interval Summary Free Text/Dictation pt iwth recurrent afib overnight. remains in afib, controlled rate at rest, up to 150s with activity. pt does state mild sob with walking. no cp/palp/ dizziness. tele: afib around [place], 70s-90s at rest, has episodes up to 140s-150s Detailed Summary ENT: no complaints Respiratory: shortness of breath Cardiovascular: no complaints Gastrointestinal: no complaints Exam/Review of Systems Vital Signs Vitals Vital Signs Date Time Temp Pulse Resp B/P Pulse Ox O2 Delivery O2 Flow Rate FiO2 05/02/16 08:20 72 05/02/16 07:00 98.2 17 109/58 97 05/01/16 04:00 Room Air Intake and Output 05/01/16 05/01/16 05/02/16 15:00 23:00 07:00 Intake Total 600 ml 400 ml Balance 600 ml 400 ml Exam Constitutional: alert, oriented Psych: no complaints Head: normocephalic Eyes: EOMI, nl conjunctiva ENMT: nl external ears & nose Neck: supple Respiratory: clear to auscultation Cardiovascular: irregularly irregular, i/vi gonzalo rusb Gastrointestinal: nl liver, spleen, soft Extremities: normal pulses 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 RUE weakness, chornic Results Result Diagram: 05/01/16 0555 05/01/16 0555 Medications Medications Current Medications Apixaban (Eliquis) 2.5 mg BID PO Last administered on 05/01/16 20:33; Admin Dose 2.5 MG; Start 04/29/16 at 09:00 Metoprolol Tartrate (Lopressor) 25 mg BID PO Last administered on 05/01/16 20: 33; Admin Dose 25 MG; Start 04/29/16 at 09:00 Zolpidem Tartrate (Ambien) 5 mg HS PRN PO INSOMNIA; Start 04/29/16 at 03:00 Acetaminophen (Tylenol Tab) 500 mg Q4H PRN PO PAIN AND OR ELEVATED TEMP Last administered on 04/30/16 01:46; Admin Dose 500 MG; Start 04/29/16 at 03:00 Atorvastatin Calcium (Lipitor) 40 mg QHS PO Last administered on 05/01/16 20:33 ; Admin Dose 40 MG; Start 04/30/16 at 21:00 Aspirin (Halfprin) 81 mg DAILY PO Last administered on 05/01/16 09:12; Admin Dose 81 MG; Start 05/01/16 at 09:00 Gabapentin (Neurontin) 100 mg QHS PO Last administered on 05/01/16 22:23; Admin Dose 100 MG; Start 05/01/16 at 21:00; Stop 05/07/16 at 21:01 Gabapentin (Neurontin) 100 mg BID PO ; Start 05/08/16 at 09:00; Stop 05/15/16 at 08:59 Gabapentin (Neurontin) 100 mg TID PO ; Start 05/15/16 at 09:00 Procedures Procedures MRI report reviewed 1. No evidence of acute intracranial pathology. 2. Very small chronic left frontal and parietal infarcts, and chronic right basal ganglia lacunar infarct. 3. Mild generalized volume loss, with mild chronic small vessel ischemic changes. BRITTNEY BEAN May 02, 2016 08:32
[2016-05-02] MEDS: ASPIRIN (EC) 81 MG TAB PO SCH (09:29)
[2016-05-02] MEDS: AMIODARONE 200 MG TAB PO SCH (09:29)
[2016-05-02] MEDS: APIXABAN 5 MG TABLET PO SCH ×2 (09:30→21:01)
[2016-05-02] MEDS: METOPROLOL (XL) 50 MG TAB PO SCH ×2 (09:30→21:00)
--- NOTE | 2016-05-02 13:35 | PN ---
DATE: 05/02/2016 SUBJECTIVE: The patient overall is better. No further weakness. No headache. OBJECTIVE: On physical examination, the patient is awake, alert, rhythm is afib. Blood pressure 10 9/58, O2 sats 97% on room air. MEDICATIONS: Are being changed. Amiodarone has been added today per Dr. Franz, and metoprolol dose has been increased. PLAN: Would opt to monitor her on new regimen and follow recommendations of Dr. Franz, increase activity. Dictated By: MATILDE JOSUE MD SR/NTS Conf#: [id number] DID#: [id number]
[2016-05-02] MEDS: ATORVASTATIN 20 MG TAB PO SCH (21:02)
[2016-05-02] MEDS: GABAPENTIN 100 MG CAP PO SCH (21:02)
[2016-05-03] VITALS (8 sets, daily range): BP systolic 104–151; BP diastolic 43–68; PULSE 59–65; RESP 15–18
[2016-05-03] MEDS: LEVOTHYROXINE 75 MCG TAB PO SCH (06:25)
[2016-05-03 07:14] LABS: BASOPHILS % 0.7 % (0.0-2.0); EOSINOPHILS # 0.1 10^3/ul (0.0-0.5); EOSINOPHILS % 3.6 % (0.0-7.0); HEMATOCRIT 34.6 % (37.0-47.0); HEMOGLOBIN 11.9 g/dl (12.0-16.0); LYMPHOCYTES # 1.7 10^3/ul (0.8-2.9); LYMPHOCYTES % 41.6 % (15.0-51.0); MEAN CORPUSCULAR HEMOGLOBIN 34.5 pg (29.0-33.0); MEAN CORPUSCULAR HGB CONC 34.3 g/dl (32.0-37.0); MEAN CORPUSCULAR VOLUME 100.8 fl (82.0-101.0); MEAN PLATELET VOLUME 8.3 fl (7.4-10.4); MONOCYTE # 0.6 10^3/ul (0.3-0.9); MONOCYTES % 14.8 % (0.0-11.0); NEUTROPHIL # 1.6 10^3/ul (1.6-7.5); NEUTROPHILS % 39.3 % (39.0-77.0); PLATELET COUNT 183 10^3/UL (140-440); RED BLOOD COUNT 3.43 10^6/ul (4.20-5.40); RED CELL DISTRIBUTION WIDTH 13.8 % (11.5-14.5); UNCORRECTED WBC 4.1 10^3/ul (4.8-10.8); WHITE BLOOD COUNT 4.1 10^3/ul (4.8-10.8)
[2016-05-03 07:19] LABS: CONDITION 1
[2016-05-03 07:23] LABS: POTASSIUM 4.2 mmol/L (3.5-5.1)
[2016-05-03 07:25] LABS: CREATININE 0.7 mg/dl (0.44-1.00)
[2016-05-03 07:26] LABS: CALCIUM 8.7 mg/dl (8.4-10.2)
[2016-05-03] MEDS: APIXABAN 5 MG TABLET PO SCH (08:31)
[2016-05-03] MEDS: ASPIRIN (EC) 81 MG TAB PO SCH (08:32)
[2016-05-03] MEDS: AMIODARONE 200 MG TAB PO SCH (08:32)
[2016-05-03] MEDS: METOPROLOL (XL) 50 MG TAB PO SCH (08:34)
--- NOTE | 2016-05-03 09:17 | CONS ---
Date/Time of Note Date/Time of Note DATE: 05/03/16 TIME: 09:13 Assessment/Plan Assessment/Plan Chief Complaint/Hosp Course # Aphasia: ? TIA vs/migraine, neuro following. MRI pending # h/o of CVA # PAFib- on AC, rhythm control with amiodarone. tsh/lfts normal. outpt pft needed. # Tachybrady- hrs in 50s, need to reduce bb dosage after increasing. however if afib pt is tachy/symptomatic. now nsr on antiarrhythmic, if has breakthrough may need ppm at some point in future. will need close f/u as outpt # LBBB # HL >> Continue on Eliquis 2.5mg po bid given age, wt < 60kg >>asa 81mg daily given possible TIA >>reduce metoprolol to xl 25 mg po bid >> add amiodarone 400mg daily x 2 weeks total then 200mg daily, confirm tsh/ lfts checked. needs outpt pft >> pt/ot eval , if cleared ok to discharge with outpt cardiology f/u Problems: Consultation Date/Type/Reason Admit Date/Time Apr 28, 2016 at 18:27 Type of Consultation: cardiology Referring Provider: MATILDE JOSUE MD 24 HR Interval Summary Free Text/Dictation no acute events. tele reviewed. pt back to nsr around 2 pm yesterday, hrs now 50s-60s. pt denies dizziness, lightheadedness, cp, sob. denies palpitations. Detailed Summary Eyes: no complaints ENT: no complaints Respiratory: no complaints Cardiovascular: no complaints Gastrointestinal: no complaints Exam/Review of Systems Vital Signs Vitals Vital Signs Date Time Temp Pulse Resp B/P Pulse Ox O2 Delivery O2 Flow Rate FiO2 05/03/16 08:34 59 05/03/16 07:46 97.8 17 119/54 97 05/01/16 04:00 Room Air Intake and Output 05/02/16 05/02/16 05/03/16 15:00 23:00 07:00 Intake Total 850 ml 420 ml Balance 850 ml 420 ml Exam Constitutional: alert, oriented Psych: no complaints Head: normocephalic Eyes: EOMI, nl conjunctiva ENMT: nl external ears & nose Neck: supple Respiratory: clear to auscultation Cardiovascular: regular diego,, i/vi gonzalo rusb Gastrointestinal: nl liver, spleen, soft Extremities: normal pulses Neurological: 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-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 intact RUE weakness, chronic Results Result Diagram: 05/03/1662405/03/16 0625 Results 24 hrs Laboratory Tests Test 05/03/16 06:25 Anion Gap 12 Basophils # 0.0 Basophils % 0.7 Blood Urea Nitrogen 28 H Calcium Level 8.7 Carbon Dioxide Level 29 Chloride Level 103 Creatinine 0.70 Eosinophils # 0.1 Eosinophils % 3.6 Glucose Level 81 Hematocrit 34.6 L Hemoglobin 11.9 L Lymphocytes # 1.7 Lymphocytes % 41.6 Magnesium Level 2.0 Mean Corpuscular Hemoglobin 34.5 H Mean Corpuscular Hemoglobin Concent 34.3 Mean Corpuscular Volume 100.8 Mean Platelet Volume 8.3 Monocytes # 0.6 Monocytes % 14.8 H Neutrophils # 1.6 Neutrophils % 39.3 Nucleated Red Blood Cells # 0.0 Nucleated Red Blood Cells % 0.0 Platelet Count 183 Potassium Level 4.2 Red Blood Count 3.43 L Red Cell Distribution Width 13.8 Sodium Level 140 White Blood Count 4.1 L Medications Medications Current Medications Apixaban (Eliquis) 2.5 mg BID PO Last administered on 05/03/16 08:31; Admin Dose 2.5 MG; Start 04/29/16 at 09:00 Zolpidem Tartrate (Ambien) 5 mg HS PRN PO INSOMNIA; Start 04/29/16 at 03:00 Acetaminophen (Tylenol Tab) 500 mg Q4H PRN PO PAIN AND OR ELEVATED TEMP Last administered on 04/30/16 01:46; Admin Dose 500 MG; Start 04/29/16 at 03:00 Atorvastatin Calcium (Lipitor) 40 mg QHS PO Last administered on 05/02/16 21:02 ; Admin Dose 40 MG; Start 04/30/16 at 21:00 Aspirin (Halfprin) 81 mg DAILY PO Last administered on 05/03/16 08:32; Admin Dose 81 MG; Start 05/01/16 at 09:00 Gabapentin (Neurontin) 100 mg QHS PO Last administered on 05/02/16 21:02; Admin Dose 100 MG; Start 05/01/16 at 21:00; Stop 05/07/16 at 21:01 Gabapentin (Neurontin) 100 mg BID PO ; Start 05/08/16 at 09:00; Stop 05/15/16 at 08:59 Gabapentin (Neurontin) 100 mg TID PO ; Start 05/15/16 at 09:00 Metoprolol Succinate (Toprol Xl) 50 mg BID PO Last administered on 05/02/16 09: 30; Admin Dose 50 MG; Start 05/02/16 at 09:00 Amiodarone HCl (Cordarone) 400 mg DAILY PO Last administered on 05/03/16 08:32 ; Admin Dose 400 MG; Start 05/02/16 at 09:00 BRITTNEY BEAN May 03, 2016 09:17
[2016-05-03] MEDS ORDERED: METO50TA16 PO (13:32)
[2016-05-03] MEDS ORDERED: AMIO200T2 PO (13:32)
[2016-05-03] MEDS ORDERED: ATOR20TA65 PO (13:32)
[2016-05-03] MEDS ORDERED: GABA100C14 PO (13:32)
[2016-05-03] MEDS ORDERED: ASPI-664 PO (13:32)
--- NOTE | 2016-05-03 14:24 | DS ---
DATE OF ADMISSION: 04/28/2016 DATE OF DISCHARGE: 05/03/2016 FINAL DIAGNOSES: 1. Acute transient ischemic attack with a brief episode of expressive aphasia, resolved. 2. Prior history of migraine. 3. Paroxysmal atrial fibrillation with acceptable ventricular response. 4. Status post prior cerebrovascular accident with right hemiparesis. 5. Hypothyroidism. HOSPITAL COURSE: The patient is an 86-year-old lady, followed by me in the office with a history of atrial fibrillation, starting with a mild right-sided frontal headache with difficulty with her vision, with no significant weakness in the right upper and lower extremities. She had walked over to her son's house with some expressive aphasia, and the patient was brought into the emergency room, was admitted for evaluation of TIA. The patient had been seen from neurology standpoint by Dr. Barry Yu. A brain CT did not show any acute infarcts. MRI of the brain showed very small chronic left frontal and parietal infarcts and chronic right basal ganglia lacunar infarct. The patient was continued on Eliquis, baby aspirin was added. The patient was seen by Dr. Franz from cardiology standpoint. An echocardiogram was performed which showed normal left ventricular systolic function, ejection fraction 65%, no vegetations. Amiodarone was added and patient was started on physical therapy with good ambulation. The patient was in sinus rhythm, heart rate in the 60s. Thyroid function is normal. DISCHARGE MEDICATIONS: The patient was discharged home on: 1. Amiodarone 400 mg p.o. daily for 2 weeks, then 200 mg daily, confirmed thyroid function studies. 2. Aspirin 81 mg p.o. daily. 3. Metoprolol-XL 25 mg b.i.d. 4. Gabapentin __100___ mg t.i.d. 5. Levothyroxine 75 mcg daily. 6. Atorvastatin 40 mg p.o. daily. FOLLOWUP: The patient will be followed in my office over the course of the next 2 weeks. DISCHARGE CONDITION: Much improved. Dictated By: MATILDE JOSUE MD, SR/DARREN Conf#: [id number] DID#: [id number]
[2016-05-03] MEDS ORDERED: METOPROLOL (XL) 50 MG TAB PO SCH (21:00)
[2016-05-08] MEDS ORDERED: GABAPENTIN 100 MG CAP PO SCH (09:00)
[2016-05-15] MEDS ORDERED: GABAPENTIN 100 MG CAP PO SCH (09:00)
== END 2016-05-03 18:30 | disposition home or self-care (01) | DRG 69 ==
LOC: E/R 16:42 → TEL 18:27
PROVIDERS: ADMIT Internal Medicine; ATTEND Internal Medicine
DX: G45.9 Transient cerebral ischemic attack, unspecified (principal); I69.351 Hemiplegia and hemiparesis following cerebral infarction affecting right dominant side; I48.0 Paroxysmal atrial fibrillation; R47.01 Aphasia; E03.9 Hypothyroidism, unspecified; D50.9 Iron deficiency anemia, unspecified; Z86.69 Personal history of other diseases of the nervous system and sense organs; Z88.8 Allergy status to other drugs, medicaments and biological substances; Z88.1 Allergy status to other antibiotic agents
CPT/HCPCS: 70450; 70551; 71010; 80048; 80053; 80061; 80307; 81001; 81003; 82607; 82746; 83036; 83735; 84436; 84443; 84484; 85025; 85610; 85730; 92526; 92610; 93005; 93306; 93880; 97162

== ENCOUNTER 2016-07-18 15:10 | Emergency (ER) | payer MEDICARE, BC ==
[~2016-07-18] VITALS: Ht 162.6 cm; Wt 44.5 kg
[~2016-07-18 15:10] MED LIST changes: -ACET325T40 PO; +AMIO200T2 PO; +APIX2.5T PO; -APIX5TAB PO; +ASPI-664 PO; -ATOR20TA38 PO; +ATOR20TA65 PO; -B CO1CAP PO; -CALC1TAB92 PO; -FAMO-95 PO; +GABA100C14 PO; -HYDR-3498 PO; +LEVO75TA5 PO; -LEVO75TA59 PO; -MAGN400T27 PO; -MULT1TAB59 PO; -MURO1282 BOTH EYES; -OMEG-135 PO
[2016-07-18 15:20] VITALS: Ht 162.6 cm; Wt 44.5 kg
[2016-07-18] MEDS ORDERED: DIPHTH/TET/ACEL PERTUSS (ADULT) 0.5 ML VIAL IM* ONE (16:00)
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
--- NOTE | 2016-07-18 17:36 | RADRPT ---
PROCEDURE: CT Lumbar Spine. CLINICAL INDICATION: Low back pain. TECHNIQUE: The study was performed on a GE [address] scanner. Spiral axial images were obtained through the lumbar spine. Sagittal and coronal reformations were created from the ra w axial data. The images were reviewed on a PACS workstation. The CTDI vol is 8.02 mGy an the DLP is 249.63 mGy-cm. COMPARISON: No prior studies are available for comparison. FINDINGS: A moderate dextroscoliosis is seen. Right lateral listhesis is seen at L3-4 and L4-5. Diffuse oste openia is seen. The lumbar lordosis is maintained. The vertebral body heights are normal. Multile khurram osteophytosis is seen. No acute fracture or subluxation is seen. The paravertebral soft tissues are unremarkable. T12-L1: Mild posterior disk height loss is seen. Mild bulging of the posterior annulus is seen. Mi ld to moderate left facet arthropathy is seen. No significant central canal stenosis is seen. The right neural foramen is patent. Moderate narrowing of the left neural foramina is seen. L1-L2: Mild to moderate disk height loss is seen with a posterior disk bulge is noted. Mild to mode rate left facet arthropathy is seen. Ligamentum flavum thickening is noted. Mild central canal chelsey nosis is seen. Moderate left foraminal stenosis is seen with mild right foraminal stenosis. L2-L3: Mild disk height loss is seen. A posterior disk bulge is seen. Moderate left facet arthropa thy is seen. Ligamentum flavum thickening is noted. Mild central canal stenosis is seen. Moderate to severe left foraminal stenosis is seen with mild to moderate right foraminal stenosis. L3-L4: Rule mild to moderate disk height loss is seen. A posterior disk osteophyte complex is seen. Moderate to severe bilateral facet arthropathy is seen with ligamentum flavum thickening. Moderat e central canal stenosis is seen. Moderate to severe left foraminal stenosis is seen with moderate right foraminal stenosis. L4-L5: Moderate disk height loss is seen with irregularity of the endplates. A posterior disk bulge is seen. Moderate right facet arthropathy is seen. Ligamentum flavum thickening is noted. No sig nificant central canal stenosis is seen. Moderate to severe right foraminal stenosis is seen with m oderate left foraminal stenosis. L5-S1: Mild bulging of the posterior annulus is seen. No significant central canal stenosis is seen . Mild bilateral foraminal stenosis is seen. IMPRESSION: 1. No CT evidence for an acute fracture or subluxation. 2. 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 3. Moderate dextroscoliosis of the right lateral listhesis at L3-4 and L4-5. RPTAT: HPNM Physician Ross Date Time Electronically viewed and signed by Nolberto Neal Physician on 07/18/2016 17:35 /
== END 2016-07-18 18:10 | disposition home or self-care (01) ==
LOC: FTE 15:10
DX: S01.01XA Laceration without foreign body of scalp, initial encounter (principal); S50.02XA Contusion of left elbow, initial encounter; S62.92XA Unspecified fracture of left hand, initial encounter for closed fracture; S09.90XA Unspecified injury of head, initial encounter; I10 Essential (primary) hypertension; E03.9 Hypothyroidism, unspecified; W01.198A Fall on same level from slipping, tripping and stumbling with subsequent striking against other object, initial encounter; Y92.9 Unspecified place or not applicable; Z23 Encounter for immunization; Z79.82 Long term (current) use of aspirin
CPT/HCPCS: 70450; 72125; 72131; 90471; 90715; 93005

== ENCOUNTER 2016-08-22 21:00 | Emergency (ER) | payer MEDICARE, BC ==
[~2016-08-22] VITALS: Ht 152.4 cm; Wt 44.0 kg
[2016-08-22 21:02] VITALS: Ht 152.4 cm; Wt 44.0 kg
[2016-08-22] MEDS ORDERED: CLIN-73 PO (21:31)
--- NOTE | 2016-08-22 21:36 | ERD ---
ER Documentation Chief Complaint Date/Time DATE: 08/22/16 TIME: 21:33 Chief Complaint WOUND LT HAND UNDER CAST. DENIES FEVER. HPI 86-year-old female presents here in emergency department for a wound on the left hand, patient has a, noted some pustular discharge coming from the wound. Patient had a macerated skin in the dorsal aspect of the left hand, IS in place. Patient denies any fever or chills. Patient is complaining of some pain burning pain 3/10 scale, is worse upon touching the area. Patient has an orthopedic doctor that she can see tomorrow. Patient denies any numbness or tingling. ROS All systems reviewed and are negative except as per history of present illness. Medications Home Meds Active Scripts Clindamycin Hcl* (Clindamycin Hcl*) 300 Mg Capsule, 300 MG PO TID for 10 Days, CAP Prov:SAMEERA HARRIS NP 08/22/16 Metoprolol Succinate* (Toprol XL*) 50 Mg Tab.er.24h, 25 MG PO BID for 30 Days, # 60 Prov:MATILDE JOSUE MD 05/03/16 Gabapentin* (Gabapentin*) 100 Mg Capsule, 100 MG PO TID for 30 Days, #90 CAP Prov:MATILDE JOSUE MD 05/03/16 Atorvastatin Calcium (Atorvastatin Calcium) 20 Mg Tablet, 40 MG PO QHS for 30 Days, #30 TAB Prov:MATILDE JOSUE MD 05/03/16 Aspirin* (Aspirin* EC) 81 Mg Tablet.dr, 81 MG PO DAILY for 30 Days, #30 Prov:MATILDE JOSUE MD 05/03/16 Amiodarone Hcl* (Amiodarone Hcl*) 200 Mg Tablet, 400 MG PO DAILY for 30 Days, # 30 TAB Prov:MATILDE JOSUE MD 05/03/16 Reported Medications Apixaban* (Eliquis*) 2.5 Mg Tablet, 2.5 MG PO BID, TAB 04/28/16 Levothyroxine Sodium* (Levothyroxine Sodium*) 75 Mcg Tablet, 75 MCG PO BEFORE BREAKFAST, #30 TAB 04/28/16 Allergies Allergies: Coded Allergies: ceftriaxone (Verified Allergy, Mild, BURNING SENSATION OF ENTIRE BODY, 05/02) cephalexin (Verified Allergy, Mild, GI UPSET, 05/02/16) ciprofloxacin (Verified Allergy, Mild, REDNESS AND ITCHING OF SKIN, 05/02/16 ) nitroglycerin (Verified Allergy, Mild, HIVES, 05/02/16) PMhx/Soc History of Surgery: Yes (PAROTID GLAND SURGERY, CARPAL TUNNEL SURGERY) Anesthesia Reaction: No Hx Neurological Disorder: Yes (STROKE) Hx Respiratory Disorders: No Hx Cardiac Disorders: Yes (HTN, AFIB) Hx Psychiatric Problems: No Hx Miscellaneous Medical Probl: Yes (afib,previous CVA) Hx Alcohol Use: No Hx Substance Use: No Hx Tobacco Use: No FmHx Family History: No coronary disease, No diabetes, No other Physical Exam Vitals Vital Signs Date Time Temp Pulse Resp B/P Pulse Ox O2 Delivery O2 Flow Rate FiO2 08/22/16 21:02 97.0 65 18 169/71 98 Physical Exam GENERAL: The patient is well developed and appropriate for usual state of health, in no apparent distress. CHEST: Clear to auscultation bilaterally. There are no rales, wheezes or rhonchi. HEART: Regular rate and rhythm. No murmurs, clicks, rubs or gallops. No S3 or S4. ABDOMEN: Soft, nontender and nondistended. Good bowel sounds. No rebound or guarding. No gross peritonitis. No gross organomegaly or masses. No Shen sign or McBurney point tenderness. BACK: No midline or flank tenderness. EXTREMITIES: Equal pulses bilaterally. There is no peripheral clubbing, cyanosis or edema. No focal swelling or erythema. Full range of motion. Grossly neurovascularly intact. NEURO: Alert and oriented. Cranial nerves 2-12 intact. Motor strength in all 4 extremities with 5/5 strength. Sensation grossly intact. Normal speech and gait. SKIN: 3 cm diameter macerated skin with some purulent discharge noted in the dorsal aspect of the left hand, no hand swelling noted, no ecchymosis noted, good circulation. There is no apparent rash or petechia. The skin is warm and dry. HEMATOLOGIC AND LYMPHATIC: There is no evidence of excessive bruising or lymphedema. No gross cervical, axillary, or inguinal lymphadenopathy. Procedures/MDM Medical decision making: Patient has an infected macerated skin on the dorsal aspect of the left hand. No symptoms of any sepsis. no s/s osteomyelitis. No symptoms of any neurovascular compromise. No symptoms of any compartment syndrome. Patient has an orthopedic doctor, is able to see orthopedic doctor tomorrow for possible bivalving of the past and further evaluation. At This Time , Patient Will Be Started on Antibiotics, Clindamycin, Patient Is Advised to Return to Emergency Department for High Fever, Numbness or Tingling, Any Other Worsening Symptoms. Otherwise, Patient Is Advised to See Out Of It Doctor for Possible Bivalving of the Cast Tomorrow. Disposition Home Stable Departure Diagnosis: Primary Impression: Infected wound Condition: Stable Patient Instructions: Wound Care Additional Instructions: see orthopedic tomorrow for possible bivalving of cast SAMEERA HARRIS NP August 22, 2016 21:36
== END 2016-08-22 21:20 | disposition home or self-care (01) ==
LOC: E/R 21:00
DX: L08.9 Local infection of the skin and subcutaneous tissue, unspecified (principal); I10 Essential (primary) hypertension; Z79.82 Long term (current) use of aspirin; Z79.01 Long term (current) use of anticoagulants
CPT/HCPCS: 99283

== ENCOUNTER 2017-02-26 03:38 | Inpatient (IN) | payer MEDICARE, BC, MEDICAID ==
[2017-02-26] VITALS (7 sets, daily range): BP systolic 128–148; BP diastolic 58–69; PULSE 54–64; RESP 16–18; TEMP 98.3; Ht 152.4 cm; Wt 46.0 kg
[~2017-02-26] VITALS: Ht 152.4 cm; Wt 46.0 kg
[~2017-02-26 03:38] MED LIST changes: +CLIN-73 PO; +METO-319 PO; -METO50TA16 PO
[2017-02-26] MEDS ORDERED: ONDANSETRON 4 MG INJ IV STA (03:43)
[2017-02-26] MEDS ORDERED: SOD CHLORIDE 0.9% 500 ML IV STA (03:43)
[2017-02-26] MEDS ORDERED: ONDANSETRON 4 MG INJ ONE (03:59)
[2017-02-26 04:30] LABS: BASOPHILS % 0.6 % (0.0-2.0); EOSINOPHILS # 0.1 10^3/ul (0.0-0.5); EOSINOPHILS % 2.1 % (0.0-7.0); HEMATOCRIT 37.4 % (37.0-47.0); HEMOGLOBIN 12.5 g/dl (12.0-16.0); LYMPHOCYTES # 2.1 10^3/ul (0.8-2.9); MEAN CORPUSCULAR HEMOGLOBIN 34.1 pg (29.0-33.0); MEAN CORPUSCULAR HGB CONC 33.4 g/dl (32.0-37.0); MEAN CORPUSCULAR VOLUME 101.9 fl (82.0-101.0); MEAN PLATELET VOLUME 10.6 fl (7.4-10.4); MONOCYTE # 0.7 10^3/ul (0.3-0.9); MONOCYTES % 12.4 % (0.0-11.0); NEUTROPHIL # 2.4 10^3/ul (1.6-7.5); NEUTROPHILS % 44.7 % (39.0-77.0); PLATELET COUNT 171 10^3/UL (140-415); RED BLOOD COUNT 3.67 10^6/ul (4.20-5.40); RED CELL DISTRIBUTION WIDTH 13.5 % (11.5-14.5); WHITE BLOOD COUNT 5.3 10^3/ul (4.8-10.8)
[2017-02-26 05:50] LABS: ANION GAP 13 (8-16); BLOOD UREA NITROGEN 31 mg/dl (7-20); CALCIUM 9.2 mg/dl (8.4-10.2); CARBON DIOXIDE 29 mmol/L (21-31); CHLORIDE 101 mmol/L (97-110); CREATININE 0.72 mg/dl (0.44-1.00); GLUCOSE 148 mg/dl (70-220); POTASSIUM 4.7 mmol/L (3.5-5.1); SODIUM 138 mmol/L (135-144)
--- NOTE | 2017-02-26 05:55 | RADRPT ---
PROCEDURE: CHEST - 1 VIEW CLINICAL INDICATION: 86-year-old female with syncope. TECHNIQUE: A single frontal AP view of the chest was performed. The images were reviewed on a PAC S workstation. COMPARISON: Chest x-ray April 28, 2016. FINDINGS: The cardiomediastinal silhouette is within normal limits. The thoracic aortic arch is calcified. Chr onic lung changes are present. There is no evidence for an infiltrate. There is no evidence for co ngestive heart failure. There is no evidence for pneumothorax. There is marked thoracolumbar scolios is with degenerative changes. There are old posterior right sixth and seventh rib fracture deformiti es. Diffuse osteopenia is present. IMPRESSION: 1. Calcified thoracic aortic arch. 2. Chronic lung changes. 3. Thoracolumbar scoliosis. 4. Old right posterior sixth and seventh rib fracture deformities. 5. Diffuse osteopenia. .Marcus Malone MD, MD Date Time Electronically viewed and signed by .Marcus Malone MD, on 02/26/2017 05:55 .M/
--- NOTE | 2017-02-26 05:58 | ERD ---
ER Documentation Chief Complaint Chief Complaint dizziness x 1 hr from home HPI This is an 86-year-old female suggested and dizzy for the past hour at home that woke her up. She said she feels like she is off balance. Denies any focal neurological complaints other than feeling ataxic. No nausea. No chills. No fever. No other current complaints. Patient has had this in the past been diagnosed with TIA in the past ROS All systems reviewed and are negative except as per history of present illness. Medications Home Meds Active Scripts Clindamycin Hcl* (Clindamycin Hcl*) 300 Mg Capsule, 300 MG PO TID for 10 Days, CAP Prov:SMAEERA HARRIS NP 08/22/16 Metoprolol Succinate* (Toprol XL*) 50 Mg Tab.er.24h, 25 MG PO BID for 30 Days, # 60 Prov:MATILDE JOSUE MD 05/03/16 Gabapentin* (Gabapentin*) 100 Mg Capsule, 100 MG PO TID for 30 Days, #90 CAP Prov:MATILDE JOSUE MD 05/03/16 Atorvastatin Calcium (Atorvastatin Calcium) 20 Mg Tablet, 40 MG PO QHS for 30 Days, #30 TAB Prov:MATILDE JOSUE MD 05/03/16 Aspirin* (Aspirin* EC) 81 Mg Tablet.dr, 81 MG PO DAILY for 30 Days, #30 Prov:MATILDE JOSUE MD 05/03/16 Amiodarone Hcl* (Amiodarone Hcl*) 200 Mg Tablet, 400 MG PO DAILY for 30 Days, # 30 TAB Prov:MATILDE JOSUE MD 05/03/16 Reported Medications Apixaban* (Eliquis*) 2.5 Mg Tablet, 2.5 MG PO BID, TAB 04/28/16 Levothyroxine Sodium* (Levothyroxine Sodium*) 75 Mcg Tablet, 75 MCG PO BEFORE BREAKFAST, #30 TAB 04/28/16 Allergies Allergies: Coded Allergies: ceftriaxone (Verified Allergy, Mild, BURNING SENSATION OF ENTIRE BODY, 05/02) cephalexin (Verified Allergy, Mild, GI UPSET, 05/02/16) ciprofloxacin (Verified Allergy, Mild, REDNESS AND ITCHING OF SKIN, 05/02/16 ) nitroglycerin (Verified Allergy, Mild, HIVES, 05/02/16) PMhx/Soc History of Surgery: Yes (PAROTID GLAND SURGERY, CARPAL TUNNEL SURGERY) Anesthesia Reaction: No Hx Neurological Disorder: Yes (STROKE) Hx Respiratory Disorders: No Hx Cardiac Disorders: Yes (HTN, AFIB) Hx Psychiatric Problems: No Hx Miscellaneous Medical Probl: Yes (afib,previous CVA) Hx Alcohol Use: No Hx Substance Use: No Hx Tobacco Use: No Smoking Status: Never smoker Physical Exam Vitals Vital Signs Date Time Temp Pulse Resp B/P Pulse Ox O2 Delivery O2 Flow Rate FiO2 02/26/17 03:41 97.8 60 15 184/72 98 Physical Exam Const: [] Head: Atraumatic Eyes: Normal Conjunctiva ENT: Normal External Ears, Nose and Mouth. Neck: Full range of motion..~ No meningismus. Resp: Clear to auscultation bilaterally Cardio: Regular rate and rhythm, no murmurs Abd: Soft, non tender, non distended. Normal bowel sounds Skin: No petechiae or rashes Back: No midline or flank tenderness Ext: No cyanosis, or edema Neur: Awake and alert Psych: Normal Mood and Affect Result Diagram: 02/26/17 0357 02/26/17 0518 Results 24 hrs Laboratory Tests Test 02/26/17 03:56 02/26/17 03:57 02/26/17 05:18 Bedside Glucose 117mg/dL White Blood Count 5.310^3/ul Red Blood Count 3.6710^6/ul Hemoglobin 12.5g/dl Hematocrit 37.4% Mean Corpuscular Volume 101.9fl Mean Corpuscular Hemoglobin 34.1pg Mean Corpuscular Hemoglobin Concent 33.4g/dl Red Cell Distribution Width 13.5% Platelet Count 50884^3/UL Mean Platelet Volume 10.6fl Neutrophils % 44.7% Lymphocytes % 40.0% Monocytes % 12.4% Eosinophils % 2.1% Basophils % 0.6% Nucleated Red Blood Cells % 0.0/100WBC Neutrophils # 2.410^3/ul Lymphocytes # 2.110^3/ul Monocytes # 0.710^3/ul Eosinophils # 0.110^3/ul Basophils # 0.010^3/ul Nucleated Red Blood Cells # 0.010^3/ul Sodium Level 138mmol/L Potassium Level 4.7mmol/L Chloride Level 101mmol/L Carbon Dioxide Level 29mmol/L Anion Gap 13 Blood Urea Nitrogen 31mg/dl Creatinine 0.72mg/dl Glucose Level 148mg/dl Calcium Level 9.2mg/dl Troponin I Pending Current Medications Medications (Trade) Dose Ordered Sig/Luli Route PRN Reason Start Time Stop Time Status Last Admin Dose Admin Sodium Chloride (NS) 500 ml @ 500 mls/hr Q1H STAT IV 02/26/17 03:43 02/26/17 04:42 DC 02/26/17 04:09 Ondansetron HCl (Zofran Inj) 4 mg ONCE STAT IV 02/26/17 03:43 02/26/17 04:06 DC 02/26/17 04:09 Procedures/MDM EKG: Rate/Rhythm: [Normal Sinus Rhythm] QRS, ST, T-waves: [No changes consistent w/ acute ischemia] Impression: [No evidence of ischemia or arrhythmia] Chest X-ray 1V Interpreted by me: Soft Tissue: No acute abnormalities Bones: No acute abnormalities Mediastinum/Cardiac Silhouette/Lungs: [No acute abnormalities] Patient's syncopal symptoms are unstable at this time and require inpatient workup. No evidence of PE or dissection at this time but occult ischemia or fatal dysrhythmia cannot be ruled out. Dr. Farrar notified Departure Diagnosis: Primary Impression: Dizziness Condition: Serious NATE MERCADOKuldip Feb 26, 2017 05:58
[2017-02-26 06:02] LABS: TROPONIN-I < 0.012 ng/ml (0.00-0.12)
--- NOTE | 2017-02-26 06:31 | RADRPT ---
PROCEDURE: CT BRAIN WITHOUT CONTRAST CLINICAL INDICATION: 86-year-old female with dizziness. TECHNIQUE: The study was performed utilizing [employer] VCT 64-slice CT scanner. Direct axial sections were obtained from the foramen magnum to the vertex without the use of intravenous contrast material. Sagittal and coronal reformations were obtained. Sagittal and coronal reformations were obtained. One or more the following dose reduction techniques were utilized: automated exposure cont rol, adjustment of the mA and/or kV according to patient's size and/or use of iterative reconstructi on technique. DICOM images are available. The images were viewed on a PACS workstation. CTD/vol = 45.0 mGy; Total Exam DLP = 720.2 mGy-cm. COMPARISON: CT brain July 18, 2016; MRI brain May 01, 2016. FINDINGS: There is mild degree of diffuse cortical and central atrophy with compensatory ventricular enlargeme nt. There is no evidence for mass effect or midline shift. There are periventricular and deep whit e matter areas of decreased density consistent with microangiopathic ischemic changes. There is foca l encephalomalacia within the left middle frontal and precentral gyrus regions consistent with prior infarcts without significant interval change. There is no evidence for acute intra or extra-axial b lood. Extensive calcifications are seen within the intracranial carotid arteries bilaterally. The andrea ny calvarium is intact. There is opacification of the right maxillary sinus, right anterior ethmoid air cells and right frontal sinus. No air-fluid levels are noted. The mastoid air cells are without significant soft tissue. IMPRESSION: 1. Mild diffuse atrophy. 2. Microangiopathic ischemic changes. 3. Old left frontal focal infarcts. 4. Vascular calcifications. 5. Persistently opacified right maxillary, anterior ethmoid and frontal sinus. .Marcus Malone MD, MD Date Time Electronically viewed and signed by .Marcus Malone MD, MD on 02/26/2017 06:31 .Tata/
[2017-02-26] MEDS ORDERED: AMIO100T4 PO (07:06)
[2017-02-26] MEDS ORDERED: ATOR20TA38 PO (07:06)
[2017-02-26] MEDS ORDERED: VIT1CAPS10 PO (07:06)
[2017-02-26] MEDS ORDERED: CYAN100T PO (07:07)
[2017-02-26] MEDS ORDERED: OMEG-135 PO (07:07)
[2017-02-26] MEDS ORDERED: VIT1TABL46 PO (07:07)
[2017-02-26] MEDS ORDERED: MAGN400T27 PO (07:08)
[2017-02-26] MEDS ORDERED: CALC1TAB79 PO (07:08)
[2017-02-26 08:22] LABS: ADD UMIC NO; UR ASCORBIC ACID 40 mg/dL (NEGATIVE); UR BILIRUBIN (Dip) NEGATIVE (NEGATIVE); UR BLOOD (Dip) NEGATIVE (NEGATIVE); UR CLARITY CLEAR (CLEAR); UR COLOR YELLOW (YELLOW); UR GLUCOSE (Dip) NEGATIVE (NEGATIVE); UR KETONES (Dip) NEGATIVE (NEGATIVE); UR LEUKOCYTE ESTERASE (Dip) NEGATIVE Leu/ul (NEGATIVE); UR NITRITE (Dip) NEGATIVE (NEGATIVE); UR SPECIFIC GRAVITY (Dip) 1.014 (1.003-1.030); UR TOTAL PROTEIN (Dip) NEGATIVE (NEGATIVE); UR UROBILINOGEN (Dip) NEGATIVE (NEGATIVE)
[2017-02-26] MEDS: ASPIRIN 81 MG TAB PO SCH (15:09)
[2017-02-26] MEDS: MAGNESIUM OXIDE 400 MG TAB PO SCH ×2 (15:09→21:00)
[2017-02-26] MEDS: AMIODARONE 200 MG TAB PO SCH (15:10)
--- NOTE | 2017-02-26 18:02 | RADRPT ---
PROCEDURE: US Carotids. CLINICAL INDICATION: Syncope TECHNIQUE: Multiple sonographic of the carotid bifurcation region and vertebral arteries were obta ined utilizing pearce scale, duplex and color-flow imaging. The images were reviewed on a PACS worksta tion. COMPARISON: 04/29/2016 FINDINGS: Evaluation of the right carotid bifurcation region reveals moderate calcific atherosclerotic disease . Evaluation of the left carotid bifurcation region reveals moderate calcific atherosclerotic disease. There is antegrade flow within the vertebral arteries bilaterally. RIGHT CAROTID MEASUREMENTS: Common Carotid [id number] (cm/sec) Internal Carotid Artery - [id number] (cm/sec) Internal Carotid Artery - mid73 (cm/sec) Internal Carotid Artery - [id number] (cm/sec) Internal Carotid/Common Carotid1.3 LEFT CAROTID MEASUREMENTS: Common Carotid Artery 135 (cm/sec) Internal Carotid Artery - proximal 80 (cm/sec) Internal Carotid Artery - mid 63 (cm/sec) Internal Carotid Artery - distal 75 (cm/sec) Internal Carotid/Common Carotid 0.6 IMPRESSION: 1. No evidence of a significant stenosis of the right internal carotid artery. 2. No evidence of a significant stenosis of the left internal carotid artery. 3. Normal antegrade flow in the vertebral arteries bilaterally. Measurement of carotid stenosis is based on peak systolic and diastolic velocity parameters that cor relate to the residual internal carotid diameter with [place] Symptomatic Carotid Endarterect ramón Trial (NASCET) based stenosis levels. Normal ( < 50% )- ICA peak systolic velocity < 125 cm/sec, ICA / CCA ratio < 2.0 Moderate stenosis ( 50 - 69% )- ICA peak systolic velocity 125 - 230 cm/sec, ICA / CCA ratio 2.0 - 4.0 Severe stenosis ( >70% )- ICA peak systolic velocity > 230 cm/sec, ICA / CCA ratio > 4.0 RPTAT:AAJJ Physician Sisi Date Time Electronically viewed and signed by Physician Sisi on 02/26/2017 18:01 /
[2017-02-26] MEDS: ATORVASTATIN 20 MG TAB PO SCH (20:04)
[2017-02-26] MEDS: APIXABAN 5 MG TABLET PO SCH (20:05)
--- NOTE | 2017-02-26 22:16 | HP ---
DATE OF ADMISSION: 02/26/2017 CHIEF COMPLAINT: Vague dizziness since last night. HISTORY OF PRESENT ILLNESS: The patient is an 86-year-old female with history of CVA with some very mild residual in her right, mostly in the right upper extremity and minimally in her righ t lower extremity, who was in her usual state of health until the night prior to admission, when she was developed this vague sense of dizziness before bed. She was doing her normal activities in get ting ready for bed and noticed sensation like the air around her was a force pushing her. Patient h ad a similar episode in the past x2. Workups were negative. The patient went to bed and laid down, but had some continued symptoms. The patient also had some mild nausea, no vomiting, no true verti go, mild headache. Symptoms lasted several hours. The patient denied any chest pains, palpitations , shortness of breath, fever, chills or night sweats. The patient denied any recent illnesses. No acute vision change. No change in her chronic neurologic symptoms. The patient ultimately summoned paramedics and was brought to the emergency room. In the ER, patient had a head CT scan which show ed no acute changes. Initial troponin was negative and patient was admitted for further management. PAST MEDICAL HISTORY: CVA with some mild right-sided residual, hypertension, hyperlipidemia, atrial fibrillation, hypothyroidism, GERD, macular degeneration, migraines, scoliosis. OPERATIONS: Left carpal tunnel, cataract, carotidectomy, trigger finger. MEDICATIONS: 1. Eliquis 2.5 mg b.i.d. 2. Amiodarone 100 mg daily. 3. Aspirin 81 mg daily. 4. Atorvastatin 20 mg daily. 5. Synthroid 75 mcg daily. ALLERGIES: 1. CEFTRIAXONE. 2. KEFLEX. 3. CIPRO. 4. NITROGLYCERIN. SOCIAL HISTORY: The patient is a . No tobacco or alcohol use. FAMILY HISTORY: The patient's father passed, Parkinson's disease, diabetes and seizure disorder. M other passed from COPD, also with osteoporosis. The patient has a son who passed from suicide, and 2 sons who are alive and well. REVIEW OF SYSTEMS: GENERAL: The patient denies any fever, chills, night sweats, weight change or other general complai nts. HEENT: The patient admits to some mild headache. No acute vision change. No other HEENT symptoms. RESPIRATORY: The patient denies any cough, wheeze, shortness of breath or other respiratory symptom s. CARDIOVASCULAR: As noted in HPI. GASTROINTESTINAL: The patient denies any abdominal pain. She has had some nausea, but no vomiting. No diarrhea. No bright red blood per rectum, melena or other GI symptoms. GENITOURINARY: The patient denies any dysuria or frequency, or other symptoms. NEUROLOGIC: The patient has some chronic right-sided weakness which is mild, especially in the righ t upper extremity. No new neurologic symptoms. PHYSICAL EXAMINATION: VITAL SIGNS: Temperature 98, pulse 57, blood pressure 128/59, pulse ox 95%. GENERAL APPEARANCE: This is an elderly female in no acute distress. She appears nontoxic . HEENT: Normocephalic, atraumatic. Sclerae anicteric. Pupils equal, round, reactive to light. Kam pharynx is clear. NECK: Supple. No adenopathy. No bruits. LUNGS: Clear to auscultation. CARDIAC: Regular rate and rhythm. ABDOMEN: Bowel sounds are present. Abdomen is soft, nontender, nondistended. EXTREMITIES: Without cyanosis, clubbing or edema. NEUROLOGIC: The patient is alert and oriented x3. There is some very mild weakness in the right up per extremity and minimal weakness in the right lower extremity. The patient is able to move upper extremities well. DATA: Chest x-ray shows chronic lung changes, old rib fracture, scoliosis, but no acute disease. C T of the brain, mild atrophy, microangiopathic ischemic changes, old left frontal focal infarct, bull e vascular calcifications, persistent opacification of the right maxillary anterior ethmoid and fron sumit sinuses. White count was 5.3, hemoglobin 12.5, platelets 175. Sodium 138, potassium 4.7, chlor shaw 101, bicarbonate 29, BUN 31, creatinine 0.72, glucose 148. Troponin less than 0.012. UA is neg ative. IMPRESSION: 1. Near syncope. 2. History of cerebrovascular accident with some mild right residual. 3. Hypertension. 4. Paroxysmal atrial fibrillation. 5. Hyperlipidemia. PLAN: Admit to tele. Serial cardiac enzymes. Cardiology consultation. I spoke with Dr. Franz. Continue outpatient medication. Carotid duplex and 2-D echocardiogram. Dictated By: JESIKA CUTLER/DARREN Conf#: [id number] [facility]#: [id number] CC: MATILDE JOSUE MD;*End*
--- NOTE | 2017-02-26 23:39 | CONS ---
Date/Time of Note Date/Time of Note DATE: 02/26/17 TIME: 23:34 Assessment/Plan Assessment/Plan Chief Complaint/Hosp Course Impression: Dizziness- pt reports feelings of "wind pushing her" sudden, no vertigo. symptoms currently stable. no new neuro deficit. CT without acute change. tele with sinus rhythm, bp stable - low suspicion for acute cardiac etiology - ok to cont telemetry - ok to check echo/carotid - check orthostatics - pt/ot eval PAF- on eliquis for stroke prophy, amio low dose for rhythm control - ok to cont, no e/o bleeding. h/h stable - low dose amio - check tsh/ft4 Tachybrady- history of bradycardia, improved on low dose bb - monitor tele LBBB - old HLD- on statin h/o CVA- involving RUE chronic. Problems: Consultation Date/Type/Reason Admit Date/Time Feb 26, 2017 at 04:00 Date of Consultation: Feb 26, 2017 Type of Consultation: Cardiology Reason for Consultation Dizziness, Presyncope Referring Provider: JESIKA GARZA MD Hx of Present Illness This is a pleasant 86 yo woman with PAF on amiodarone and eliquis, tachy/diego syndrome, CVA with R sided weakness, LBBB, and TIA. Pt admitted 12/4 am to [facility] due to vague sense of dizziness before bed. She states she felt a force pushing her. States symptoms progressed so she called for help. Had + nausea, no vomiting, diaphoresis, vertigo, palpitations. Pt denies chest pain/pressure. Symptoms lasted several hours. The patient denies any recent illnesses. No acute vision change. Has noticed more weakness in RUE as of late and throbbing in her left arm. she was recently seen by neurology with workup pending. In the ER, patient had a head CT scan which showed no acute changes,EKG reviewed shows NSR with LBBB. 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 hypertension Hyperlipidemia Macular degeneration Past Surgical History Past Surgical Hx: no surgical history Family History Significant Family History: other (no high risk cad) Social History Alcohol Use: none Smoking Status: Former smoker Drug Use: none Exam/Review of Systems Vital Signs Vitals Vital Signs Date Time Temp Pulse Resp B/P Pulse Ox O2 Delivery O2 Flow Rate FiO2 02/26/17 20:00 57 02/26/17 20:00 98.1 16 148/69 95 02/26/17 07:35 Room Air Intake and Output 02/25/17 02/25/17 02/26/17 15:00 23:00 07:00 Intake Total 500 ml Balance 500 ml Exam Constitutional: alert, oriented Psych: no complaints Head: normocephalic Eyes: EOMI, nl conjunctiva ENMT: nl external ears & nose Neck: supple Respiratory: clear to auscultation Cardiovascular: regular diego,, i/vi gonzalo rusb Gastrointestinal: nl liver, spleen, soft Extremities: normal pulses 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 RUE weakness, chronic Results Result Diagram: 02/26/17 0357 02/26/17 0518 Results 24 hrs Laboratory Tests Test 02/26/17 03:56 02/26/17 03:57 02/26/17 05:18 02/26/17 07:50 Bedside Glucose 117 White Blood Count 5.3 # Red Blood Count 3.67 L Hemoglobin 12.5 Hematocrit 37.4 Mean Corpuscular Volume 101.9 H Mean Corpuscular Hemoglobin 34.1 H Mean Corpuscular Hemoglobin Concent 33.4 Red Cell Distribution Width 13.5 Platelet Count 171 Mean Platelet Volume 10.6 #H Neutrophils % 44.7 Lymphocytes % 40.0 Monocytes % 12.4 H Eosinophils % 2.1 Basophils % 0.6 Nucleated Red Blood Cells % 0.0 Neutrophils # 2.4 Lymphocytes # 2.1 Monocytes # 0.7 Eosinophils # 0.1 Basophils # 0.0 Nucleated Red Blood Cells # 0.0 Sodium Level 138 Potassium Level 4.7 Chloride Level 101 Carbon Dioxide Level 29 Anion Gap 13 Blood Urea Nitrogen 31 H Creatinine 0.72 Glucose Level 148 Calcium Level 9.2 Troponin I < 0.012 Urine Color YELLOW Urine Clarity CLEAR Urine pH 6.0 Urine Specific [place] 1.014 Urine Ketones NEGATIVE Urine Nitrite NEGATIVE Urine Bilirubin NEGATIVE Urine Urobilinogen NEGATIVE Urine Leukocyte Esterase NEGATIVE Urine Hemoglobin NEGATIVE Urine Glucose NEGATIVE Urine Total Protein NEGATIVE Test 02/26/17 14:04 02/26/17 19:16 Troponin I < 0.012 < 0.012 Medications Medications Current Medications Amiodarone HCl (Cordarone) 100 mg DAILY PO Last administered on 02/26/17 15:10 ; Admin Dose 100 MG; Start 02/26/17 at 13:30 Apixaban (Eliquis) 2.5 mg BID PO Last administered on 02/26/17 20:05; Admin Dose 2.5 MG; Start 02/26/17 at 21:00 Cyanocobalamin (Vitamin B12) 100 mcg DAILY PO ; Start 02/27/17 at 09:00 Atorvastatin Calcium (Lipitor) 20 mg HS PO Last administered on 02/26/17 20:04 ; Admin Dose 20 MG; Start 02/26/17 at 21:00 Levothyroxine Sodium (Synthroid) 75 mcg DAILY@06 PO ; Start 02/27/17 at 06:00 Magnesium Oxide (Mag-Ox 400) 400 mg BID PO Last administered on 02/26/17 15:09 ; Admin Dose 400 MG; Start 02/26/17 at 13:30 Aspirin (Aspirin) 81 mg DAILY PO Last administered on 02/26/17 15:09; Admin Dose 81 MG; Start 02/26/17 at 13:[address] head report reviewed BRITTNEY BEAN Feb 26, 2017 23:39
[2017-02-27] VITALS (14 sets, daily range): BP systolic 108–166; BP diastolic 53–70; PULSE 45–58; RESP 16–20
[2017-02-27] MEDS: LEVOTHYROXINE 75 MCG TAB PO SCH (05:25)
[2017-02-27 07:33] LABS: BASOPHILS % 0.5 % (0.0-2.0); EOSINOPHILS # 0.1 10^3/ul (0.0-0.5); EOSINOPHILS % 2.5 % (0.0-7.0); HEMATOCRIT 36.6 % (37.0-47.0); HEMOGLOBIN 12.4 g/dl (12.0-16.0); LYMPHOCYTES # 1.6 10^3/ul (0.8-2.9); LYMPHOCYTES % 39.6 % (15.0-51.0); MEAN CORPUSCULAR HEMOGLOBIN 34.1 pg (29.0-33.0); MEAN CORPUSCULAR HGB CONC 33.9 g/dl (32.0-37.0); MEAN CORPUSCULAR VOLUME 100.5 fl (82.0-101.0); MEAN PLATELET VOLUME 9.9 fl (7.4-10.4); MONOCYTE # 0.6 10^3/ul (0.3-0.9); MONOCYTES % 13.8 % (0.0-11.0); NEUTROPHIL # 1.7 10^3/ul (1.6-7.5); NEUTROPHILS % 43.3 % (39.0-77.0); PLATELET COUNT 180 10^3/UL (140-415); RED BLOOD COUNT 3.64 10^6/ul (4.20-5.40); RED CELL DISTRIBUTION WIDTH 13.4 % (11.5-14.5)
[2017-02-27 08:20] LABS: ALBUMIN 3.1 g/dl (3.3-4.9); ALBUMIN/GLOBULIN RATIO 1.03; BILIRUBIN,INDIRECT 0.7 mg/dl (0-1.1); BILIRUBIN,TOTAL 0.7 mg/dl (0.2-1.3); CALCIUM 9.3 mg/dl (8.4-10.2); CHOL/HDL RATIO 1.9 RATIO; CREATININE 0.79 mg/dl (0.44-1.00); POTASSIUM 4.8 mmol/L (3.5-5.1); TOTAL PROTEIN 6.1 g/dl (6.1-8.1)
[2017-02-27 08:53] LABS: THYROID STIMULATING HORMONE 5.79 MIU/L (0.465-4.680)
[2017-02-27] MEDS: CYANOCOBALAMIN 100 MCG TAB PO SCH (08:54)
[2017-02-27] MEDS: MAGNESIUM OXIDE 400 MG TAB PO SCH ×2 (08:54→21:05)
[2017-02-27] MEDS: ASPIRIN 81 MG TAB PO SCH (08:54)
[2017-02-27] MEDS: APIXABAN 5 MG TABLET PO SCH ×2 (08:54→21:05)
[2017-02-27] MEDS: AMIODARONE 200 MG TAB PO SCH (08:57)
--- NOTE | 2017-02-27 12:29 | PN ---
Date/Time of Note Date/Time of Note DATE: 02/27/17 TIME: 12:25 Assessment/Plan VTE Prophylaxis VTE Prophylaxis Intervention: other Lines/Catheters IV Catheter Type (from Nrs): Saline Lock Assessment/Plan Assessment/Plan A: dizziness/near syncope CVA with rt residual weakness paroxysmal Afib HTN P: nutrition eval PT/OT eval echo results pending cont current rx Subjective 24 Hr Interval Summary Free Text/Dictation Cardiology consult appreciated. Pt feeling better, no cp, sob, dizziness but has not been doing any activity. Spoke with son on phone and some concern over pt's diet at home. Pt had small bm today. Exam/Review of Systems Vital Signs Vitals Vital Signs Date Time Temp Pulse Resp B/P Pulse Ox O2 Delivery O2 Flow Rate FiO2 02/27/17 11:40 98.0 56 18 120/55 99 02/26/17 07:35 Room Air Intake and Output 02/26/17 02/26/17 02/27/17 14:59 22:59 06:59 Intake Total 600 ml 120 ml Balance 600 ml 120 ml Exam gen- nad, nontoxic lungs- CTA heart- RRR abd- +BS, soft, nontender ext- no edema Results Result Diagram: 02/27/17 0701 02/27/17 0701 Results 24 hrs Laboratory Tests Test 02/26/17 14:04 02/26/17 19:16 02/27/17 07:01 Troponin I < 0.012 < 0.012 White Blood Count 4.0 #L Red Blood Count 3.64 L Hemoglobin 12.4 Hematocrit 36.6 L Mean Corpuscular Volume 100.5 Mean Corpuscular Hemoglobin 34.1 H Mean Corpuscular Hemoglobin Concent 33.9 Red Cell Distribution Width 13.4 Platelet Count 180 Mean Platelet Volume 9.9 Neutrophils % 43.3 Lymphocytes % 39.6 Monocytes % 13.8 H Eosinophils % 2.5 Basophils % 0.5 Nucleated Red Blood Cells % 0.0 Neutrophils # 1.7 Lymphocytes # 1.6 Monocytes # 0.6 Eosinophils # 0.1 Basophils # 0.0 Nucleated Red Blood Cells # 0.0 Sodium Level 141 Potassium Level 4.8 Chloride Level 104 Carbon Dioxide Level 32 H Anion Gap 10 Blood Urea Nitrogen 23 H Creatinine 0.79 Glucose Level 93 # Calcium Level 9.3 Total Bilirubin 0.7 Direct Bilirubin 0.00 Indirect Bilirubin 0.7 Aspartate Amino Transf (AST/SGOT) 26 Alanine Aminotransferase (ALT/SGPT) 46 Alkaline Phosphatase 70 Total Protein 6.1 Albumin 3.1 L Globulin 3.00 Albumin/Globulin Ratio 1.03 Triglycerides Level 61 Cholesterol Level 118 LDL Cholesterol, Calculated 44 HDL Cholesterol 62 Cholesterol/HDL Ratio 1.9 Thyroid Stimulating Hormone (TSH) 5.790 H Medications Medications Current Medications Amiodarone HCl (Cordarone) 100 mg DAILY PO Last administered on 02/26/17 15:10 ; Admin Dose 100 MG; Start 02/26/17 at 13:30 Apixaban (Eliquis) 2.5 mg BID PO Last administered on 02/27/17 08:54; Admin Dose 2.5 MG; Start 02/26/17 at 21:00 Cyanocobalamin (Vitamin B12) 100 mcg DAILY PO Last administered on 02/27/17 08 :54; Admin Dose 100 MCG; Start 02/27/17 at 09:00 Atorvastatin Calcium (Lipitor) 20 mg HS PO Last administered on 02/26/17 20:04 ; Admin Dose 20 MG; Start 02/26/17 at 21:00 Levothyroxine Sodium (Synthroid) 75 mcg DAILY@06 PO Last administered on 05:25; Admin Dose 75 MCG; Start 02/27/17 at 06:00 Magnesium Oxide (Mag-Ox 400) 400 mg BID PO Last administered on 02/27/17 08:54 ; Admin Dose 400 MG; Start 02/26/17 at 13:30 Aspirin (Aspirin) 81 mg DAILY PO Last administered on 02/27/17 08:54; Admin Dose 81 MG; Start 02/26/17 at 13:30 JESIKA GARZA MD Feb 27, 2017 12:29
--- NOTE | 2017-02-27 14:48 | RADRPT ---
Echocardiogram Report Patient Name: ZAINA PIMENTEL Gender: Female Date: 1930 Study Date: 27-Feb-2017 Car Examiner: Juarez Cooley [facility] Location: [address] Ref. Physician: JESIKA GARZA Quality: Adequate Procedures: Transthoracic echocardiogram with complete 2D, M-Mode, and doppler examination. Indications: Near syncope. 2D/M Mode Doppler Measurement Value Normal Ranges Measurement Value Normal Ranges LVIDd 2D 3.0 3.5 - 5.6 cm VALARIE Vmax 0.8 cm2 LVIDs 2D 2.1 2.1 - 4.1 cm VALARIE VTI 0.8 cm2 LVPWd 2D 1.0 0.6 - 1.1 cm AV Mean George 1.5 m/sec IVSd 2D 1.0 0.6 - 1.1 cm AV Mean PG 11.0 mmHg AoR Diam 2D 2.0 2.0 - 3.7 cm AV Peak George 2.2 m/sec EDV 2D 35.5 cm3 AV Peak PG 19.5 mmHg ESV 2D 8.9 cm3 AV VTI 57.4 cm LA Dimen 2D 2.8 2.3 - 4.0 cm AI Peak PG 58.0 mmHg LVOT Diam 1.5 cm AI Peak George 3.8 m/sec AI PHT 559.4 msec LVOT Mean George 0.7 m/sec LVOT Mean PG 2.4 mmHg LVOT Peak George 1.1 m/sec LVOT Peak PG 4.4 mmHg LVOT VTI 25.5 cm MV E Peak George 1.3 m/sec MV A Peak George 1.1 m/sec MV E/A 1.1 MV Decel Time 280 msec MV Decel [place] 4 MV E/A 1.1 TR Peak George 2.8 m/sec TR Peak PG 31.0 mmHg RVSP 34.0 mmHg Findings Left Ventricle: Normal left ventricular systolic function. Normal left ventricular cavity size. Mild concentric left ventricular hypertrophy. Ejection fraction is visually estimated at 65 %. Tissue Doppler/Mitral Doppler indices are consistent with pseudonormalization with mildly elevated left atrial pressure (Stage II diastolic dysfunction). Right Ventricle: Normal right ventricular size. Normal right ventricular systolic function. Left Atrium: There is mild enlargement of left atrium. Right Atrium: The right atrium is normal in size. Mitral Valve: Mild mitral leaflet calcification. Mild mitral annular calcification. Trace mitral regurgitation. Aortic Valve: Aortic cusps appear mildly calcified. Mild aortic valve regurgitation with eccentric jet. Tricuspid Valve: Normal appearance of the tricuspid valve. Unable to obtain RVSP due to minimal presence of tricuspid regurgitation. There is trace tricuspid regurgitation. Pulmonic Valve: Pulmonic valve not well visualized. There is trace pulmonic regurgitation. Pericardium: Normal pericardium with no significant pericardial effusion. Aorta: Normal aortic root. IVC: Normal size and normal respiratory collapse consistent with normal right atrial pressure. Conclusions 1.Normal left ventricular systolic function. Normal left ventricular cavity size. Mild concentric left ventricular hypertrophy. Ejection fraction is visually estimated at 65 %. Tissue Doppler/Mitral Doppler indices are consistent with pseudonormalization with mildly elevated left atrial pressure (Stage II diastolic dysfunction). 2.Normal right ventricular size. Normal right ventricular systolic function. 3.There is mild enlargement of left atrium. 4.Aortic cusps appear mildly calcified. Mild aortic valve regurgitation with eccentric jet. 5.Normal appearance of the tricuspid valve. Unable to obtain RVSP due to minimal presence of tricuspid regurgitation. There is trace tricuspid regurgitation. 6.Normal pericardium with no significant pericardial effusion. 7.Normal size and normal respiratory collapse consistent with normal right atrial pressure. 8.Compared with prior echo performed on 04/2016 there has been no significant interval change. Electronically Signed By: Marcin Franz 27-Feb-2017 14:47:26 -0800 Patient Name: ZAINA PIMENTEL Study Date: 27-Feb-2017 [id number]
--- NOTE | 2017-02-27 15:02 | CONS ---
Date/Time of Note Date/Time of Note DATE: 02/27/17 TIME: 14:51 Assessment/Plan Assessment/Plan Chief Complaint/Hosp Course Impression: Dizziness- pt reports feelings of "wind pushing her" sudden, no vertigo. symptoms currently stable. no new neuro deficit. CT without acute change. Patient patient does have sinus bradycardia however is asymptomatic with this bradycardia today. I do not suspect her original complaints are due to bradycardia as hr was normal when she presented, howeer, she does have known tachybradycardia syndrome. We will continue to monitor her and if symptoms continue with increased activity she may need pacemaker placement. - ok to hold amiodarone, though half life can be weeks to months. - ok to cont telemetry - ambulate patient to determine chronotropic response to activity and if symptoms can be provoked. - pt/ot eval PAF- on eliquis for stroke prophy, amio low dose for rhythm control - ok to cont, no e/o bleeding. h/h stable - holding amio - check tsh/ft4 Tachybrady- history of bradycardia. and afib with rvr. will monitor, consider ppm if continued sympoms. - monitor tele LBBB - old HLD- on statin h/o CVA- involving RUE chronic. Problems: Consultation Date/Type/Reason Admit Date/Time Feb 26, 2017 at 04:00 Initial Consult Date 02/26/2017 Type of Consultation: Cardiology Reason for Consultation Pre-syncope Referring Provider: JESIKA GARZA MD 24 HR Interval Summary Free Text/Dictation Patient states she feels better today. Up to chair eating lunch has not been ambulatory around unit. Denies any further feelings of dizziness or being pushed. No chest pain palpitations. No nausea vomiting sweating. Telemetry tracings were reviewed: She denies in sinus rhythm though sinus bradycardia in the 50s. Heart rate as low as 44 no pauses. No arrhythmia. Detailed Summary Eyes: no complaints ENT: no complaints Respiratory: no complaints Cardiovascular: no complaints Gastrointestinal: no complaints Exam/Review of Systems Vital Signs Vitals Vital Signs Date Time Temp Pulse Resp B/P Pulse Ox O2 Delivery O2 Flow Rate FiO2 02/27/17 12:00 52 02/27/17 11:40 98.0 18 120/55 99 02/26/17 07:35 Room Air Intake and Output 02/26/17 02/26/1702/27/17 14:59 22:59 06:59 Intake Total 600 ml 120 ml Balance 600 ml 120 ml Exam Constitutional: alert, oriented Psych: no complaints Head: normocephalic Eyes: EOMI, nl conjunctiva ENMT: nl external ears & nose Neck: supple Respiratory: clear to auscultation Cardiovascular: regular diego,, i/vi gonzalo rusb Gastrointestinal: nl liver, spleen, soft Extremities: normal pulses 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 RUE weakness, chronic Results Result Diagram: 02/27/17 0702/27/17 07 Results 24 hrs Laboratory Tests Test 02/26/17 19:16 02/27/17 07:01 Troponin I < 0.012 White Blood Count 4.0 #L Red Blood Count 3.64 L Hemoglobin 12.4 Hematocrit 36.6 L Mean Corpuscular Volume 100.5 Mean Corpuscular Hemoglobin 34.1 H Mean Corpuscular Hemoglobin Concent 33.9 Red Cell Distribution Width 13.4 Platelet Count 180 Mean Platelet Volume 9.9 Neutrophils % 43.3 Lymphocytes % 39.6 Monocytes % 13.8 H Eosinophils % 2.5 Basophils % 0.5 Nucleated Red Blood Cells % 0.0 Neutrophils # 1.7 Lymphocytes # 1.6 Monocytes # 0.6 Eosinophils # 0.1 Basophils # 0.0 Nucleated Red Blood Cells # 0.0 Sodium Level 141 Potassium Level 4.8 Chloride Level 104 Carbon Dioxide Level 32 H Anion Gap 10 Blood Urea Nitrogen 23 H Creatinine 0.79 Glucose Level 93 # Calcium Level 9.3 Total Bilirubin 0.7 Direct Bilirubin 0.00 Indirect Bilirubin 0.7 Aspartate Amino Transf (AST/SGOT) 26 Alanine Aminotransferase (ALT/SGPT) 46 Alkaline Phosphatase 70 Total Protein 6.1 Albumin 3.1 L Globulin 3.00 Albumin/Globulin Ratio 1.03 Triglycerides Level 61 Cholesterol Level 118 LDL Cholesterol, Calculated 44 HDL Cholesterol 62 Cholesterol/HDL Ratio 1.9 Thyroid Stimulating Hormone (TSH) 5.790 H Medications Medications Current Medications Amiodarone HCl (Cordarone) 100 mg DAILY PO Last administered on 02/26/17 15:10 ; Admin Dose 100 MG; Start 02/26/17 at 13:30 Apixaban (Eliquis) 2.5 mg BID PO Last administered on 02/27/17 08:54; Admin Dose 2.5 MG; Start 02/26/17 at 21:00 Cyanocobalamin (Vitamin B12) 100 mcg DAILY PO Last administered on 02/27/17 08 :54; Admin Dose 100 MCG; Start 02/27/17 at 09:00 Atorvastatin Calcium (Lipitor) 20 mg HS PO Last administered on 02/26/17 20:04 ; Admin Dose 20 MG; Start 02/26/17 at 21:00 Levothyroxine Sodium (Synthroid) 75 mcg DAILY@06 PO Last administered on 05:25; Admin Dose 75 MCG; Start 02/27/17 at 06:00 Magnesium Oxide (Mag-Ox 400) 400 mg BID PO Last administered on 02/27/17 08:54 ; Admin Dose 400 MG; Start 02/26/17 at 13:30 Aspirin (Aspirin) 81 mg DAILY PO Last administered on 02/27/17 08:54; Admin Dose 81 MG; Start 02/26/17 at 13:30 Procedures Procedures Carotid ultrasound report reviewed. Echo images reviewed report is in EMR BRITTNEY BEAN Feb 27, 2017 15:02
[2017-02-27] MEDS: ATORVASTATIN 20 MG TAB PO SCH (21:05)
[2017-02-28] VITALS (11 sets, daily range): BP systolic 106–134; BP diastolic 42–60; PULSE 48–75; RESP 17–20
[2017-02-28] MEDS: LEVOTHYROXINE 75 MCG TAB PO SCH (05:31)
[2017-02-28 09:00] LABS: CALCIUM 8.9 mg/dl (8.4-10.2); CREATININE 0.82 mg/dl (0.44-1.00); POTASSIUM 4.4 mmol/L (3.5-5.1)
[2017-02-28] MEDS: AMIODARONE 200 MG TAB PO SCH (09:00)
--- NOTE | 2017-02-28 09:10 | CONS ---
Date/Time of Note Date/Time of Note DATE: 02/28/17 TIME: 09:07 Assessment/Plan Assessment/Plan Chief Complaint/Hosp Course Impression: Dizziness- pt reports feelings of "wind pushing her" sudden, no vertigo. symptoms currently stable. no new neuro deficit. CT without acute change. Patient patient does have sinus bradycardia however is asymptomatic with this bradycardia. I do not suspect her original complaints are due to bradycardia as hr was normal when she presented, however, she does have known tachybradycardia syndrome. She should have increased activity today and will assess her response to activity. It is unlikely that she will require pacemaker placement. - ok to hold amiodarone, though half life can be weeks to months. - ok to cont telemetry - ambulate patient to determine chronotropic response to activity and if symptoms can be provoked. - pt/ot eval PAF- on eliquis for stroke prophy, amio low dose for rhythm control - ok to cont, no e/o bleeding. h/h stable - holding amio Tachybrady- history of bradycardia. and afib with rvr. will monitor, consider ppm if continued sympoms. - monitor tele LBBB - old HLD- on statin h/o CVA- involving RUE chronic. Problems: Consultation Date/Type/Reason Admit Date/Time Feb 26, 2017 at 06:00 Initial Consult Date 02/26/2017 Type of Consultation: Cardiology Referring Provider: JESIKA GARZA MD 24 HR Interval Summary Free Text/Dictation No acute events. Patient states she has ambulated to the bathroom with assist no chest pain shortness of breath or dizziness. She states that she is waiting for PT to help her ambulate in the song. No PND orthopnea or edema. Tolerating p.o. no nausea vomiting. Telemetry reviewed vision with sinus bradycardia heart rates 40s-60. Mostly in the 50s. 40s mostly at night when sleeping. No pauses or advanced block. No atrial fibrillation Detailed Summary ENT: no complaints Respiratory: no complaints Cardiovascular: no complaints Gastrointestinal: no complaints Exam/Review of Systems Vital Signs Vitals Vital Signs Date Time Temp Pulse Resp B/P Pulse Ox O2 Delivery O2 Flow Rate FiO2 02/28/17 08:25 97.6 50 18 126/49 98 02/26/17 07:35 Room Air Intake and Output 02/27/17 02/27/17 02/28/17 15:00 23:00 07:00 Intake Total 550 ml 200 ml Balance 550 ml 200 ml Exam Constitutional: alert, oriented Psych: no complaints Head: normocephalic Eyes: EOMI, nl conjunctiva ENMT: nl external ears & nose Neck: supple Respiratory: clear to auscultation Cardiovascular: regular diego,, i/vi gonzalo rusb Gastrointestinal: nl liver, spleen, soft Extremities: normal pulses Neurological: 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 GRIP II-XII intact RUE weakness, chronic Results Result Diagram: 02/27/17 0701 02/28/17 0732 Results 24 hrs Laboratory Tests Test 02/28/17 07:32 Sodium Level 138 Potassium Level 4.4 Chloride Level 103 Carbon Dioxide Level 30 Anion Gap 9 Blood Urea Nitrogen 25 H Creatinine 0.82 Glucose Level 86 Calcium Level 8.9 Thyroid Stimulating Hormone (TSH) Pending Free Thyroxine 1.52 Medications Medications Current Medications Amiodarone HCl (Cordarone) 100 mg DAILY PO Last administered on 02/26/17 15:10 ; Admin Dose 100 MG; Start 02/26/17 at 13:30 Apixaban (Eliquis) 2.5 mg BID PO Last administered on 02/27/17 21:05; Admin Dose 2.5 MG; Start 02/26/17 at 21:00 Cyanocobalamin (Vitamin B12) 100 mcg DAILY PO Last administered on 02/27/17 08 :54; Admin Dose 100 MCG; Start 02/27/17 at 09:00 Atorvastatin Calcium (Lipitor) 20 mg HS PO Last administered on 02/27/17 21:05 ; Admin Dose 20 MG; Start 02/26/17 at 21:00 Levothyroxine Sodium (Synthroid) 75 mcg DAILY@06 PO Last administered on 05:31; Admin Dose 75 MCG; Start 02/27/17 at 06:00 Magnesium Oxide (Mag-Ox 400) 400 mg BID PO Last administered on 02/27/17 21:05 ; Admin Dose 400 MG; Start 02/26/17 at 13:30 Aspirin (Aspirin) 81 mg DAILY PO Last administered on 02/27/17 08:54; Admin Dose 81 MG; Start 02/26/17 at 13:30 BRITTNEY BEAN Feb 28, 2017 09:10
[2017-02-28] MEDS: ASPIRIN 81 MG TAB PO SCH (09:40)
[2017-02-28] MEDS: MAGNESIUM OXIDE 400 MG TAB PO SCH ×2 (09:41→20:28)
[2017-02-28] MEDS: APIXABAN 5 MG TABLET PO SCH ×2 (09:41→20:27)
[2017-02-28] MEDS: CYANOCOBALAMIN 100 MCG TAB PO SCH (09:42)
--- NOTE | 2017-02-28 12:47 | PN ---
DATE: 02/28/2017 SUBJECTIVE: Previous history reviewed. History of present illness reviewed and patient was examine d. The patient is ambulating. Denies any chest pain, denies any palpitations, some dizziness, no s hortness of breath. PHYSICAL EXAMINATION: GENERAL: The patient is awake, alert. VITAL SIGNS: Temperature 97.6, pulse 50 per minute, blood pressure 126/49, pulse oximetry 98% on ro om air. HEENT: Head normocephalic. No pallor, cyanosis, or icterus. LUNGS: Clinically clear. HEART: S1, S2 heard with no definite gallops. ABDOMEN: Soft, nontender, no hepatosplenomegaly. EXTREMITIES: No edema. Homans sign is negative. NEUROLOGIC: No localizing or lateralizing signs. LABORATORY DATA: Potassium 4.4. TSH is 10.0. Albumin is 3.1. Troponin x2 is negative. IMPRESSION: 1. Near syncope complicated by tachybrady syndrome. The patient is significantly hypothyroid. 2. Status post previous cerebrovascular accident with right hemiparesis. 3. Atrial fibrillation, on chronic anticoagulation, paroxysmal. PLAN: Will increase the dose of Synthroid to 100 mcg repeat magnesium and potassium in the a.m. In crease activity. The patient is stable. We will consider discharge in the next 24 hours. Dictated By: MATILDE JOSUE MD, SR/DARREN Conf#: [id number] DID#: [id number]
[2017-02-28] MEDS: ATORVASTATIN 20 MG TAB PO SCH (20:28)
[2017-02-28] MEDS ORDERED: AL HYDROX/MG HYDROX/SIMETH 30 ML CUP PO PRN (20:30)
[2017-03-01] VITALS (10 sets, daily range): BP systolic 118–138; BP diastolic 56–68; PULSE 47–57; RESP 18–20
[2017-03-01] MEDS: LEVOTHYROXINE 100 MCG TAB PO SCH (06:47)
[2017-03-01 08:59] LABS: BASOPHILS % 0.8 % (0.0-2.0); EOSINOPHILS # 0.1 10^3/ul (0.0-0.5); HEMATOCRIT 38.4 % (37.0-47.0); HEMOGLOBIN 12.8 g/dl (12.0-16.0); LYMPHOCYTES # 1.5 10^3/ul (0.8-2.9); LYMPHOCYTES % 36.9 % (15.0-51.0); MEAN CORPUSCULAR HEMOGLOBIN 33.5 pg (29.0-33.0); MEAN CORPUSCULAR HGB CONC 33.3 g/dl (32.0-37.0); MEAN CORPUSCULAR VOLUME 100.5 fl (82.0-101.0); MONOCYTE # 0.6 10^3/ul (0.3-0.9); MONOCYTES % 13.8 % (0.0-11.0); NEUTROPHIL # 1.8 10^3/ul (1.6-7.5); NEUTROPHILS % 45.2 % (39.0-77.0); PLATELET COUNT 194 10^3/UL (140-415); RED BLOOD COUNT 3.82 10^6/ul (4.20-5.40); RED CELL DISTRIBUTION WIDTH 13.3 % (11.5-14.5)
[2017-03-01] MEDS: APIXABAN 5 MG TABLET PO SCH ×2 (09:17→21:12)
[2017-03-01] MEDS: MAGNESIUM OXIDE 400 MG TAB PO SCH ×2 (09:17→21:12)
[2017-03-01] MEDS: ASPIRIN 81 MG TAB PO SCH (09:17)
[2017-03-01] MEDS: CYANOCOBALAMIN 100 MCG TAB PO SCH (09:17)
[2017-03-01] MEDS: AMIODARONE 200 MG TAB PO SCH (09:19)
[2017-03-01 09:23] LABS: CALCIUM 8.7 mg/dl (8.4-10.2); CREATININE 0.75 mg/dl (0.44-1.00); MAGNESIUM 2.2 mg/dl (1.7-2.5); POTASSIUM 4.1 mmol/L (3.5-5.1)
[2017-03-01] MEDS: DOCUSATE SODIUM 100 MG CAP PO SCH ×2 (12:30→21:12)
--- NOTE | 2017-03-01 15:04 | CONS ---
Date/Time of Note Date/Time of Note DATE: 03/01/17 TIME: 15:00 Assessment/Plan Assessment/Plan Chief Complaint/Hosp Course Impression: Dizziness- pt reports feelings of "wind pushing her" sudden, no vertigo. symptoms currently stable. no new neuro deficit. CT without acute change. Patient patient does have sinus bradycardia however is asymptomatic with this bradycardia. I do not suspect her original complaints are due to bradycardia. she is ambulatory without symptoms. will f/u as outpt. - amiodarone 100mcg daily. - ok to d/c home from cardiac perspective PAF- on eliquis for stroke prophy, amio low dose for rhythm control - ok to cont amio low dose - cont eliquis for stroke prophy Tachybrady- history of bradycardia. and afib with rvr. will monitor, consider ppm if continued sympoms. - monitor tele LBBB - old HLD- on statin h/o CVA- involving RUE chronic. Problems: Consultation Date/Type/Reason Admit Date/Time Mar 01, 2017 at 12:27 Initial Consult Date 02/26/2017 Type of Consultation: Cardiology Referring Provider: JESIKA GARZA MD 24 HR Interval Summary Free Text/Dictation Patient seen this a.m. was doing well. Denies any dizziness lightheadedness. Was ambulating to bathroom and in the song with PT yesterday. Did not feel any dizziness she states. No chest pain or shortness of breath. Detailed Summary Eyes: no complaints ENT: no complaints Respiratory: no complaints Cardiovascular: no complaints Exam/Review of Systems Vital Signs Vitals Vital Signs Date Time Temp Pulse Resp B/P Pulse Ox O2 Delivery O2 Flow Rate FiO2 03/01/17 12:18 48 03/01/17 11:42 98.7 20 120/56 100 02/26/17 07:35 Room Air Intake and Output 02/28/17 02/28/17 03/01/17 15:00 23:00 07:00 Intake Total 800 ml 250 ml Balance 800 ml 250 ml Exam Constitutional: alert, oriented Psych: no complaints Head: normocephalic Eyes: EOMI, nl conjunctiva ENMT: nl external ears & nose Neck: supple Respiratory: clear to auscultation Cardiovascular: regular diego,, i/vi gonzalo rusb Gastrointestinal: nl liver, spleen, soft Extremities: normal pulses Neurological: WOUND NURSE II-XII intact RUE weakness, chronic Results Result Diagram: 03/01/1724 03/01/17 0724 Results 24 hrs Laboratory Tests Test 03/01/17 07:24 White Blood Count 4.0 L Red Blood Count 3.82 L Hemoglobin 12.8 Hematocrit 38.4 Mean Corpuscular Volume 100.5 Mean Corpuscular Hemoglobin 33.5 H Mean Corpuscular Hemoglobin Concent 33.3 Red Cell Distribution Width 13.3 Platelet Count 194 Mean Platelet Volume 10.0 Neutrophils % 45.2 Lymphocytes % 36.9 Monocytes % 13.8 H Eosinophils % 3.0 Basophils % 0.8 Nucleated Red Blood Cells % 0.0 Neutrophils # 1.8 Lymphocytes # 1.5 Monocytes # 0.6 Eosinophils # 0.1 Basophils # 0.0 Nucleated Red Blood Cells # 0.0 Sodium Level 138 Potassium Level 4.1 Chloride Level 103 Carbon Dioxide Level 30 Anion Gap 9 Blood Urea Nitrogen 22 H Creatinine 0.75 Glucose Level 78 Calcium Level 8.7 Magnesium Level 2.2 Medications Medications Current Medications Amiodarone HCl (Cordarone) 100 mg DAILY PO Last administered on 03/01/17 09:19 ; Admin Dose 100 MG; Start 02/26/17 at 13:30 Apixaban (Eliquis) 2.5 mg BID PO Last administered on 03/01/17 09:17; Admin Dose 2.5 MG; Start 02/26/17 at 21:00 Cyanocobalamin (Vitamin B12) 100 mcg DAILY PO Last administered on 03/01/17 09 :17; Admin Dose 100 MCG; Start 02/27/17 at 09:00 Atorvastatin Calcium (Lipitor) 20 mg HS PO Last administered on 02/28/17 20:28 ; Admin Dose 20 MG; Start 02/26/17 at 21:00 Magnesium Oxide (Mag-Ox 400) 400 mg BID PO Last administered on 03/01/17 09:17 ; Admin Dose 400 MG; Start 02/26/17 at 13:30 Aspirin (Aspirin) 81 mg DAILY PO Last administered on 03/01/17 09:17; Admin Dose 81 MG; Start 02/26/17 at 13:30 Levothyroxine Sodium (Synthroid) 100 mcg DAILY@06 PO Last administered on 06:47; Admin Dose 100 MCG; Start 03/01/17 at 06:00 Al Hydrox/Mg Hydrox/Simethicone (Mag-Al Plus) 30 ml Q6H PRN PO GASTROINTESTINAL UPSET Last administered on 02/28/17t 20:31; Admin Dose 30 ML; Start 02/28/17 at 20:30 Docusate Sodium (Colace) 100 mg BID PO ; Start 03/01/17 at 12:30 Procedures Procedures Telemetry reviewed: Normal sinus rhythm heart rate is 50s to 60s. BRITTNEY BEAN Mar 01, 2017 15:04
--- NOTE | 2017-03-01 18:32 | PN ---
DATE: 03/01/2017 SUBJECTIVE: Patient continues to have generalized weakness and dizziness, particularly while ambula ting. Denies any chest pain. PHYSICAL EXAMINATION: GENERAL: The patient is awake, alert. VITAL SIGNS: Heart rate 48 per minute, temperature 98.7, blood pressure 120/56. HEENT: Head normocephalic. No pallor, cyanosis. No JVD is not increased. CHEST: Clinically clear. HEART: S1, S2 heard with no definite gallops. EXTREMITIES: No edema. LABORATORY DATA: Hematocrit 38.4, magnesium 2.2, potassium 4.1. IMPRESSION: 1. 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 The patient is hypothyroid. TSH at 10. Synthroid dose has been increased. 2. Status post previous cerebrovascular accident with right hemiparesis. 4. Atrial fibrillation, paroxysmal, on chronic anticoagulation. PLAN: Will increase activity and if stable, will consider discharge over the next 24 hours after di scussing with Dr. Yuen. Dictated By: MATILDE JOSUE MD SR/NTS Conf#: [id number] DID#: [id number] CC: MATILDE JOSUE MD;*EndCC*
[2017-03-01] MEDS: ATORVASTATIN 20 MG TAB PO SCH (21:12)
[2017-03-02] VITALS (12 sets, daily range): BP systolic 124–159; BP diastolic 59–73; PULSE 50–65; RESP 16–21
[2017-03-02] MEDS: LEVOTHYROXINE 100 MCG TAB PO SCH (06:59)
[2017-03-02] MEDS: APIXABAN 5 MG TABLET PO SCH ×2 (09:31→22:30)
[2017-03-02] MEDS: CYANOCOBALAMIN 100 MCG TAB PO SCH (09:31)
[2017-03-02] MEDS: DOCUSATE SODIUM 100 MG CAP PO SCH ×2 (09:31→22:29)
[2017-03-02] MEDS: MAGNESIUM OXIDE 400 MG TAB PO SCH ×2 (09:31→22:29)
[2017-03-02] MEDS: ASPIRIN 81 MG TAB PO SCH (09:31)
[2017-03-02] MEDS: AMIODARONE 200 MG TAB PO SCH (09:39)
[2017-03-02] MEDS ORDERED: MAGNESIUM CITRATE 300 ML BTL PO ONE (15:00)
[2017-03-02] MEDS: ATORVASTATIN 20 MG TAB PO SCH (22:29)
[2017-03-03] VITALS (10 sets, daily range): BP systolic 93–158; BP diastolic 52–77; PULSE 49–68; RESP 18–21
[2017-03-03] MEDS: LEVOTHYROXINE 100 MCG TAB PO SCH (05:17)
[2017-03-03] MEDS: CYANOCOBALAMIN 100 MCG TAB PO SCH (08:50)
[2017-03-03] MEDS: MAGNESIUM OXIDE 400 MG TAB PO SCH (08:50)
[2017-03-03] MEDS: ASPIRIN 81 MG TAB PO SCH (08:50)
[2017-03-03] MEDS: AMIODARONE 200 MG TAB PO SCH (08:50)
[2017-03-03] MEDS: APIXABAN 5 MG TABLET PO SCH (08:50)
[2017-03-03] MEDS: DOCUSATE SODIUM 100 MG CAP PO SCH (08:51)
--- NOTE | 2017-03-03 09:02 | PN ---
DATE: 03/02/2017 SUBJECTIVE: The patient continues to have dizziness and generalized weakness. PHYSICAL EXAMINATION: HEART: Heart rate has been variable, 50-60. VITAL SIGNS: Blood pressure 144/63, O2 saturations 99% on room air. HEENT: Head normocephalic. No pallor, cyanosis, or icterus. CHEST: Clinically clear. HEART: S1, S2 heard with no gallops. ABDOMEN: Soft, nontender, no hepatosplenomegaly. EXTREMITIES: No edema. Homans negative. IMPRESSION: 1. 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 2. Hypothyroidism, dosage has been adjusted. 3. Status post cerebrovascular accident with right hemiparesis with minimal residuals on the right upper extremity. 4. Atrial fibrillation, paroxysmal, on chronic anticoagulation. PLAN: We will continue to increase patient's mobility and will discuss with Dr. Medel and if the patient is stable over the next 24 hours, consider discharge. Will continue to increase activity. Will discuss with Dr. Medel and once the heart rate has improved we will consider discharge. Dictated By: MATILDE JOSUE MD, SR/DARREN Conf#: [id number] DID#: [id number]
[2017-03-03] MEDS ORDERED: SYN1 PO (15:34)
--- NOTE | 2017-03-03 17:47 | DS ---
DATE OF ADMISSION: 03/01/2017 DATE OF DISCHARGE: 03/03/2017 FINAL DIAGNOSES: 1. 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 2. Hypothyroidism. 3. Status post previous cerebrovascular accident with right hemiparesis with good resolution with m inimal residual, mostly related to the right upper arm. 4. Atrial fibrillation, paroxysmal, on chronic anticoagulation. HOSPITAL COURSE: The patient is an 86-year-old lady with prior history of cerebrovascular accident with mild residual on the right upper extremity, presenting with a vague sense of dizziness as she w as getting ready for bed and has had similar episodes x2 in the past and the patient went to bed and continued to have symptoms with some mild nausea, no vomiting, no vertigo. Denied any chest pain a nd was evaluated in the emergency room after being brought in by paramedics. Troponin was negative. CAT scan of the brain showed no acute changes. The patient was admitted by Dr. Farrar who was covering for tn. The patient was continued on Eliquis. The patient was seen by Dr. Franz, who r ecommended low dose amiodarone and to continue Eliquis. TSH was 10 and the patient had previously b een on Synthroid 75 mcg daily, which was increased to 100 mcg daily. The patient was begun on ambulation with physical therapy and began ambulating with no significant s ymptoms and on 03/03/2017, her heart rate was 52 per minute, temperature 98, blood pressure 117/52, O2 sat 98%. Chest was clinically clear, no signs of CHF. The patient was discharged home in much improved condition. Medications include: 1. Amiodarone 100 mg p.o. daily. 2. Eliquis 2.5 mg p.o. b.i.d. 3. Aspirin 81 mg daily. 4. Atorvastatin 20 mg daily. 5. Levothyroxine 100 mcg p.o. daily. The patient will be followed in the office over the course of next 2 weeks. DISCHARGE CONDITION: Much improved. Home health will be arranged, along with outpatient physical t herapy. Dictated By: MATILDE JOSUE MD, SR/DARREN Conf#: [id number] DID#: [id number]
== END 2017-03-03 17:17 | disposition home or self-care (01) | DRG 309 ==
LOC: E/R 03:38 → UNDOADMOB 04:00 → INTOOBSV 04:00 → MS4 04:00 → OBSVTOIN 03-01 12:27
PROVIDERS: ADMIT Internal Medicine; ATTEND Internal Medicine
DX: I49.5 Sick sinus syndrome (principal); I69.351 Hemiplegia and hemiparesis following cerebral infarction affecting right dominant side; I48.0 Paroxysmal atrial fibrillation; I10 Essential (primary) hypertension; R55 Syncope and collapse; E03.9 Hypothyroidism, unspecified; M41.9 Scoliosis, unspecified; E78.5 Hyperlipidemia, unspecified; Z79.82 Long term (current) use of aspirin; Z79.01 Long term (current) use of anticoagulants
CPT/HCPCS: 36415; 70450; 71010; 80048; 80053; 80061; 81003; 82962; 83735; 84439; 84443; 84484; 85025; 87040; 87086; 92610; 93005; 93306; 93880; 96361; 96374; 97003; 97110; 97165; 97535; 99217; G0378; J2405; J3420; J7040

== ENCOUNTER 2017-05-23 12:55 | Emergency (ER) | END 2017-05-23 21:28 | disposition left against medical advice (07) ==

== ENCOUNTER 2017-06-06 17:19 | Inpatient (IN) | END 2017-06-17 17:05 | disposition home or self-care (01) | DRG 194 ==

== ENCOUNTER → 2017-08-31 | Outpatient (CLI) | END | disposition home or self-care (01) ==

== ENCOUNTER → 2017-09-18 | Outpatient (CLI) | END | disposition home or self-care (01) ==

== ENCOUNTER → 2019-01-24 | Outpatient (CLI) | payer MEDICARE, BC, MEDICAID ==
[~2019-01-24] MED LIST changes: +AMIO100T4 PO; -AMIO200T2 PO; -ASPI-664 PO; +ASPI-817 PO; +ATOR20TA38 PO; -ATOR20TA65 PO; +CALC1TAB79 PO; -CLIN-73 PO; +DOXY100T2 PO; -GABA100C14 PO; -METO-319 PO
== END | disposition home or self-care (01) ==
LOC: RAD 11:49
PROVIDERS: ATTEND Internal Medicine
DX: J20.9 Acute bronchitis, unspecified (principal)
CPT/HCPCS: 71046